=== PATIENT | female | born 1940 | race Caucasian/White ===

== ENCOUNTER 2025-01-25 15:27 | Emergency (ER) | payer MEDICARE, MEDICAID, SELFPAY ==
--- NOTE | ~2025-01-25 | CT_ITS ---
CLINICAL HISTORY: fall, head injury CT cervical spine without contrast Comparison: None Findings: Normal limited view of the intracranial contents. Soft tissues of the neck are normal. Lung apices are clear. There is bilateral pleural apical calcified plaque. No acute fractures. There is advanced degenerative narrowing of the temporomandibular joints. There is ankylosis/fusion of C5-6 and C6-7 disc spaces. No epidural hematoma. There is uncovertebral joint and facet hypertrophy with advanced bilateral foraminal stenosis at C4-5, There is 6 mm anterolisthesis of C4 on C5. Impression: There is 6 mm anterior subluxation C4 on C5. There is advanced foraminal stenosis at this level in the left and moderate foraminal stenosis on the right. No soft tissue hematoma. No signs of associated fracture. This document has been electronically signed by: Claudio Faustin MD on 01/25/2025 17:26:52
--- NOTE | ~2025-01-25 | XR_ITS ---
CLINICAL HISTORY: fall, weakness EXAM: Two views of the chest. COMPARISON: None FINDINGS: Normal cardiac, mediastinal, and hilar contours. Normal heart size. No pleural effusion or pneumothorax. Lungs are clear. No acute bone finding. IMPRESSION: 1. No acute cardiopulmonary process demonstrated. This document has been electronically signed by: Johnny Lombardi MD on 01/25/2025 18:58:58
--- NOTE | ~2025-01-25 | XR_ITS ---
CLINICAL HISTORY: fall, bilateral pain 5 view, pelvis and bilateral hips Comparison: None Findings: No acute fracture or dislocation. Moderate bilateral hip osteoarthritic changes, xshy-mwywgtk-glif-right. The soft tissues are unremarkable. IMPRESSION: No acute findings. This document has been electronically signed by: Johnny Lombardi MD on 01/25/2025 18:58:45
--- NOTE | ~2025-01-25 | CT_ITS ---
CLINICAL HISTORY: fall, head injury CT Head Without Contrast: Comparison: None Findings: Cortical sulci are symmetric Basal ganglia are unremarkable No shift in midline structures No intraparenchymal bleeding or abnormal extra axial blood fluid collections Normal pituitary size Clear paranasal sinuses Unremarkable orbital structures No depressed fractures Impression: Unremarkable CT of the head, no signs of acute trauma This document has been electronically signed by: Claudio Faustin MD on 01/25/2025 17:14:08
[2025-01-25 15:35] VITALS: BP 162/76; BP 168/62; PULSE 100; PULSE 93; RESP 18; TEMP 36.7; O2SAT 97; O2SAT 98; BMI 19.4
--- NOTE | 2025-01-25 15:43 | ECG_ITS ---
Test Reason : syncope Blood Pressure : */* mmHG Vent. Rate : 89 BPM Atrial Rate : 89 BPM P-R Int : 170 ms QRS Dur : 84 ms QT Int : 390 ms P-R-T Axes : 45 -27 73 degrees QTcB Int : 474 ms Sinus rhythm with marked sinus arrhythmia Nonspecific ST and T wave abnormality Abnormal ECG No previous ECGs available Referred By: Generic ED Physician Electronically Signed By: Sukhdeep Clemente
--- NOTE | 2025-01-25 15:47 | ED_ITS ---
HPI - Fall General Chief Complaint: Fall Stated Complaint: fall injury Time Seen by Provider: 01/25/25 15:44 Source: patient and EMS Mode of arrival: EMS Limitations: no limitations History of Present Illness ED Provider: olga tanner NP HPI Narrative: Patient is an 84-year-old female who presents emergency department via EMS coming from [facility] facility at [facility]. She states that she is feeling generally weak and fatigued today, she admits that over the past 2 days she was out attending services, and has been under a great deal stress rounding this. She decided to go and get herself of TMs she thought that this might help her feel better, she felt increasingly more weak while thinks she ultimately fell backwards onto the floor striking her head. She denies any loss of consciousness, use of anticoagulants. She was able to get herself up from the floor and walk back in her room to call her friends for help. She does admit to having pain in the bilateral hips though she has chronic arthritis, states that she has not noticed an acute change she was able to walk after the fall. She denies headache, dizziness, lightheadedness, vision changes, chest pain, shortness of breath, nausea, vomiting, numbness or tingling of the extremity. Denies recent URI symptoms, fevers, chills, cough, abdominal pain, diarrhea, constipation. Related Data Allergies Allergy/AdvReac Type Severity Reaction Status Date / Time methotrexate [METHOTREXATE] Allergy Severe DIFFICULTY Verified 01/25/25 15:41 BREATHING Review of Systems 2 Review of Systems: Yes all other systems are reviewed and are negative [facility] Past Medical History Attestation statement: The following information was validated with the patient. Source: old records reviewed Social History Social History Advance Directives: No Advance Directives Information Provided: No Physical Exam 2 Vital Signs: Vital Signs: Last Vital Signs Temp 98.2 F 01/26/25 06:02 Pulse 79 01/26/25 06:02 Resp 16 01/26/25 06:02 BP 148/67 H 01/26/25 06:02 Pulse Ox 95 01/26/25 06:02 O2 Del Method Room Air 01/26/25 06:02 BMI result Body Mass Index 19.4 Appearance: Alert.?Oriented to person, place and time. No acute distress.?Normal affect. Head: Normocephalic, atraumatic Eyes: Pupils equal, round and reactive to light.? EOMI. No palpable periorbital deformities or ecchymosis ENT: Pharynx normal.??TM normal bilaterally. No rhinorrhea. No septal hematoma. TM normal bilaterally Neck: Normal inspection.? Neck supple.??No midline cervical spine tenderness, step-offs, deformities. Back: No midline thoracic or lumbar spine tenderness, step-offs, deformities. CVS: Heart sounds normal. Normal heart rate and rhythm.? Pulses normal.?? Respiratory: No respiratory distress.? Lung sounds clear to auscultation bilaterally?? Abdomen: Soft and non-tender. Normoactive bowel sounds Skin: Skin warm and dry.? Normal skin color.? Extremities: No lower extremity edema.? No calf ttp. Full range of motion to bilateral upper extremities, decreased AROM to the bilateral hips due to pain 2+ DP/PT pulse, 2+ radial pulse bilaterally. Neuro: Moves all extremities spontaneously. Sensation intact bilaterally. CN II- XII intact. No focal neuro deficits. Course Reevaluation(s) Reevaluation #1: CBC reveals a mild leukocytosis 11,300, normocytic anemia that does not meet transfusion criteria, thrombocytosis 533,000. Hyponatremia, hypokalemia, hypochloremia, does not appear as though she is on any diuretics, will obtain additional labs including urine sodium, urine, and serum osmolality. Reevaluation #2: CT of the cervical spine has resulted with findings of a 6 mm anterior subluxation of C4 on C5. Patient is without any reports of acute pain to the cervical spine nor tenderness upon palpation. There is advanced formula stenosis as well. Given her underlying arthritis, I am not certain whether this is something chronic in nature versus acute from the fall today. I have contacted [facility], was unable to reach the trauma service through their transfer line, I was however connected to the emergency department and I spoke with Dr. Lopez, he was able to access their medical records and determined that in [address] of the cervical spine which at that time revealed a 5 mm subluxation of C4 on C5. This clearly favoring a chronic finding rather than acute and given she is currently asymptomatic without focal neurological deficits, did not feel as though she required transfer. Time: 18:21 Reevaluation #3: XR of the bilateral hips and pelvis without acute pathology no fracture dislocation, CXR without consolidation or infiltrates no acute pathology. Reviewed serum labs and urine Osmo/sodium with Nephrology Dr. Blanc to dehydration, advises electrolyte replacement and IV fluids. Patient receiving 1 L normal saline IV fluid, magnesium potassium were replaced, pending repeat chemistries. Patient signed out to [facility] pending labs. I had a discussion with patient and her visitors at bedside, patient was able to ambulate with use of a walker, they did expressed concern about her safety and strength with returning to an independent living facility, given option for physical therapy/case management evaluation. Time: 01:26 Additional Reevaluation(s): Patient received in sign-out at change of shift pending repeat labs and disposition. The patient's repeat chemistries are improved, sodium is closed with a normal at 133, potassium is within normal limits, chloride has improved within normal limits. No other concerning findings. On re-evaluation, despite the patient walking to the bathroom several times, she reported that she did not feel safe being discharged and would prefer to stay overnight for physical therapy evaluation and case management evaluation. Consultations Consultation #1: Time: 08:35 Date: 01/26/25 Provider: OSKAR Cross I have reviewed all lab/ imaging results. hyponatremia/hypochloremia/hypomagnesemia/hypokalemia > repleted + IVF w/ improvement. no acute fractures on imaging. I was called to bedside by patient and her niece Maude. Patient expresses desire to be discharged home at this time. She does not wish to wait for PT evaluation. Patient states that her hip pain is much improved since last night and she is able to move around more. She has been up and ambulating independently to the bathroom several times. I have also evaluated patient, she appears to have steady gait. Both her and her niece are comfortable with her discharge back to her independent living facility. Physician observation ended at 8:35 a.m. Patient has plans to follow up outpatient with her doctor tomorrow. patient is AOX3 and capable of making her own decisions. I feel discharge back to her living facility is reasonable at this time. PT eval canceled. Patient has remained stable throughout ED visit today. Discussed worrisome signs and symptoms and when to return to the ED. All questions answered at this time. Patient is agreeable with disposition and stable for discharge. Medications Administered Discontinued Medications Generic Name Dose Route Start Last Admin Trade Name Monica PRN Reason Stop Dose Admin Acetaminophen 975 mg 01/25/25 19:02 01/25/25 19:11 Acetaminophen 325 Mg Tablet PO 01/25/25 19:03 975 mg ONCE ONE Administration Sodium Chloride 1,000 mls @ 999 mls/hr 01/25/25 20:15 01/25/25 21:44 Ns IV 01/25/25 21:15 Infused .Q1H1M JOSEFINA Infusion Magnesium Oxide 400 mg 01/25/25 16:55 01/25/25 17:29 Magnesium Oxide 400 Mg Tablet PO 01/25/25 16:56 400 mg ONCE ONE Administration Potassium Chloride 40 meq 01/25/25 16:55 01/25/25 17:29 Potassium Chloride Packet 20 Meq Packet PO 01/25/25 16:56 40 meq ONCE ONE Administration Medical Decision Making Medical Decision Making [facility] Narrative: Patient is an 84-year-old female with past medical history of hypertension, IBS, arthritis, hypothyroidism, GERD who presents emergency department for evaluation after an unwitnessed fall, feeling generally weak today, increasing weakness upon walking, result and fall posteriorly with head strike no loss of consciousness no use of anticoagulants. She was able to get up unassisted back to her room to call for help. Her only physical complaints at this time is generalized weakness in addition to pain to the bilateral hips which he states is chronic in nature for her does not feel as though it is increased. On examination there is no shortening or rotation of the lower extremities he does have decreased AROM. 2+ DP/PT pulse bilaterally. She has no focal neurological deficits. Given her age and history of fall, obtaining CT head and cervical spine to exclude ICH, SDH, fracture, subluxation. In addition will obtain XR of the bilateral hips/pelvis to evaluate for possible fracture/dislocation. Her generalized weakness/fatigue may be secondary to over exertion over the past 2 days, will obtain CBC to evaluate for leukocytosis/ anemia, CMP and lipase to evaluate for abnormal electrolytes /abnormal renal function/ abnormal hepatic/biliary function, EKG and troponin to evaluate for ischemia/ACS, viral serologies, and Urinalysis. Differential Diagnosis Differential Diagnoses: The differential diagnosis associated with the presentation includes (See narrative above) Admission/Observation Consideration of admission/observation: Escalation of care including admission/observation considered Lab Data [facility] Lab Attestation statement: I reviewed the patient's lab results. 01/25/25 16:02 01/25/25 21:43 Labs: Lab Results 01/25/25 01/25/25 01/25/25 Range/Units 16:02 17:48 17:51 WBC 11.3 H (4.8-10.8) X10*3/uL RBC 3.30 L (4.20-5.50) X10*6/uL Hgb 10.0 L (12.0-16.0) g/dl Hct 28.6 L (37.0-47.0) % MCV 86.7 (80.0-98.0) fL MCH 30.3 (27.0-33.0) pg MCHC 35.0 (31.0-35.0) g/dl RDW 13.6 (11.0-16.0) % Plt Count 533 H (160-400) X10*3/uL MPV 8.0 L (9.4-12.3) fL Immature Gran % (Auto) 0.5 H (0.0-0.4) % Neut % (Auto) 91.1 H (45-73) % Lymph % (Auto) 1.4 L (20-40) % Summers % (Auto) 6.6 (2-11) % Eos % (Auto) 0.0 (0-4) % Baso % (Auto) 0.4 (0-2) % Lymph # (Auto) 0.2 L (1.2-4.9) X10*3/uL Summers # (Auto) 0.8 (0.1-1.2) X10*3/uL Eos # (Auto) 0.0 (0.0-0.4) X10*3/uL Baso # (Auto) 0.1 (0.0-0.2) X10*3/uL Abs Immat Gran (auto) 0.06 H (0.00-0.03) X10*3/uL Absolute Neuts (auto) 10.3 H (2.0-8.3) x10*3/uL Absolute Nucleated RBC 0.000 (0.0-0.012) X10*3/uL Nucleated RBC % (auto) 0.0 (0.0-0.2) /100WBC Smear Tech's Comments VERIFIED Sodium 129 L (135-145) mmol/L Potassium 3.1 L (3.3-5.1) mmol/L Chloride 94 L (96-108) mmol/L Carbon Dioxide 24 (22-29) mmol/L Anion Gap 14 (12-20) BUN 12 (9-16) mg/dL Creatinine 0.80 (0.5-1.4) mg/dL Estim Creat Clear Calc 40.8 Estimated GFR > 60 Random Glucose 180 H (60-115) mg/dL Osmolality 270 L (281-305) mosm/kg Calcium 9.2 (8.4-10.2) mg/dL Magnesium 1.5 L (1.6-2.6) mg/dL Total Bilirubin 0.5 (0.0-1.0) mg/dL AST 28 (5-31) U/L ALT 11 (0-31) U/L Alkaline Phosphatase 81 (39-117) U/L Troponin I High Sens 14.4 (<3.5-17.0) ng/L B-Natriuretic Peptide 121 H (<100) pg/mL Total Protein 7.4 (6.5-8.0) g/dL Albumin 4.1 (3.5-5.0) g/dL Urine Color Yellow Urine Appearance Clear Urine pH 6.5 (5.0-9.0) Ur Specific [place] 1.010 (1.005-1.025) Urine Protein Negative (Neg-Trace) mg/dL Urine Glucose (UA) 100 H (Negative) mg/dL Urine Ketones Negative (Negative) mg/dL Urine Blood Trace H (Negative) Urine Nitrite Negative (Negative) Ur Leukocyte Esterase Negative (Negative) Urine RBC 0-2 (0-2) /HPF Urine WBC 0-5 (0-5) /HPF Ur Squamous Epith Cells 0-2 (0-2) /HPF Urine Bacteria None Seen (None Seen) Hyaline Casts 0-2 (0-2) /LPF Urine Osmolality 255 L (373-1093) mosm/kg Ur Random Sodium 69.0 mmol/L Influenza Type A (PCR) NEGATIVE (Negative) Influenza Type B (PCR) NEGATIVE (Negative) RSV RNA Qual (PCR) NEGATIVE (Negative) SARS-CoV-2 RNA (RT-PCR) NEGATIVE (Negative) 04/12/25 Range/Units 21:43 WBC (4.8-10.8) X10*3/uL RBC (4.20-5.50) X10*6/uL Hgb (12.0-16.0) g/dl Hct (37.0-47.0) % MCV (80.0-98.0) fL MCH (27.0-33.0) pg MCHC (31.0-35.0) g/dl RDW (11.0-16.0) % Plt Count (160-400) X10*3/uL MPV (9.4-12.3) fL Immature Gran % (Auto) (0.0-0.4) % Neut % (Auto) (45-73) % Lymph % (Auto) (20-40) % Summers % (Auto) (2-11) % Eos % (Auto) (0-4) % Baso % (Auto) (0-2) % Lymph # (Auto) (1.2-4.9) X10*3/uL Summers # (Auto) (0.1-1.2) X10*3/uL Eos # (Auto) (0.0-0.4) X10*3/uL Baso # (Auto) (0.0-0.2) X10*3/uL Abs Immat Gran (auto) (0.00-0.03) X10*3/uL Absolute Neuts (auto) (2.0-8.3) x10*3/uL Absolute Nucleated RBC (0.0-0.012) X10*3/uL Nucleated RBC % (auto) (0.0-0.2) /100WBC Smear Tech's Comments Sodium 133 L (135-145) mmol/L Potassium 3.8 D (3.3-5.1) mmol/L Chloride 102 (96-108) mmol/L Carbon Dioxide 24 (22-29) mmol/L Anion Gap 11 L (12-20) BUN 10 (9-16) mg/dL Creatinine 0.73 (0.5-1.4) mg/dL Estim Creat Clear Calc 44.7 Estimated GFR > 60 Random Glucose 159 H (60-115) mg/dL Osmolality (281-305) mosm/kg Calcium 8.1 L D (8.4-10.2) mg/dL Magnesium 1.5 L (1.6-2.6) mg/dL Total Bilirubin (0.0-1.0) mg/dL AST (5-31) U/L ALT (0-31) U/L Alkaline Phosphatase (39-117) U/L Troponin I High Sens (<3.5-17.0) ng/L B-Natriuretic Peptide (<100) pg/mL Total Protein (6.5-8.0) g/dL Albumin (3.5-5.0) g/dL Urine Color Urine Appearance Urine pH (5.0-9.0) Ur Specific [place] (1.005-1.025) Urine Protein (Neg-Trace) mg/dL Urine Glucose (UA) (Negative) mg/dL Urine Ketones (Negative) mg/dL Urine Blood (Negative) Urine Nitrite (Negative) Ur Leukocyte Esterase (Negative) Urine RBC (0-2) /HPF Urine WBC (0-5) /HPF Ur Squamous Epith Cells (0-2) /HPF Urine Bacteria (None Seen) Hyaline Casts (0-2) /LPF Urine Osmolality (373-1093) mosm/kg Ur Random Sodium mmol/L Influenza Type A (PCR) (Negative) Influenza Type B (PCR) (Negative) RSV RNA Qual (PCR) (Negative) SARS-CoV-2 RNA (RT-PCR) (Negative) Radiology Impression Discussion of test interpretation with radiology: I have reviewed the radiologist's reading. Radiologist Impression: CT Head Without Contrast: Comparison: None Findings: Cortical sulci are symmetric Basal ganglia are unremarkable No shift in midline structures No intraparenchymal bleeding or abnormal extra axial blood fluid collections Normal pituitary size Clear paranasal sinuses Unremarkable orbital structures No depressed fractures Impression: Unremarkable CT of the head, no signs of acute trauma CT cervical spine without contrast Comparison: None Findings: Normal limited view of the intracranial contents. Soft tissues of the neck are normal. Lung apices are clear. There is bilateral pleural apical calcified plaque. No acute fractures. There is advanced degenerative narrowing of the temporomandibular joints. There is ankylosis/fusion of C5-6 and C6-7 disc spaces. No epidural hematoma. There is uncovertebral joint and facet hypertrophy with advanced bilateral foraminal stenosis at C4-5, There is 6 mm anterolisthesis of C4 on C5. Impression: There is 6 mm anterior subluxation C4 on C5. There is advanced foraminal stenosis at this level in the left and moderate foraminal stenosis on the right. No soft tissue hematoma. No signs of associated fracture. EXAM: Two views of the chest. COMPARISON: None FINDINGS: Normal cardiac, mediastinal, and hilar contours. Normal heart size. No pleural effusion or pneumothorax. Lungs are clear. No acute bone finding. IMPRESSION: 1. No acute cardiopulmonary process demonstrated. 5 view, pelvis and bilateral hips Comparison: None Findings: No acute fracture or dislocation. Moderate bilateral hip osteoarthritic changes, [id number]. The soft tissues are unremarkable. IMPRESSION: No acute findings. Independent Historian Clinical information obtained from an independent historian. History obtained from or confirmed by: EMS Chronic Conditions Patient?s care impacted by: Other (See narrative above) Discharge Plan Discharge Clinical Impression: Fall, Hyponatremia, Hypomagnesemia, Hypokalemia Patient Disposition: Home, Self-Care Instructions: Hyponatremia (ED), Hypomagnesemia (ED), Fall Prevention (ED), Hypokalemia (ED) Additional Instructions: You were evaluated in the ED following a fall. The CT scans of your head and your neck do not demonstrate any acute trauma or fracture. 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 This is evident on previous scans. The x-rays of your chest and hip/pelvis are normal. Your blood work did show low levels of sodium, magnesium, and potassium. see home care instructions. You were treated with IV fluids, IV magnesium and IV potassium. Make sure you are staying well hydrated and drinking electrolytes. It was important that you follow up with your PCP this week. They may want to repeat labs to ensure that your levels stay within normal limits. You are declining physical therapy evaluation at this time. You are walking with a steady gait and feel safe with discharge back to your independent living facility. Please follow up with your PCP. Return with any new or worsening symptoms. In the case of an emergency call 911. Print Language: Syriac
[2025-01-25 16:09] LABS: Basophils Absolute Auto 0.1 X10*3/uL (0.0-0.2); Basophils Percent Auto 0.4 % (0-2); Hematocrit 28.6 % (37.0-47.0); Imm Gran Abs Auto 0.06 X10*3/uL (0.00-0.03); Imm Gran Pct Auto 0.5 % (0.0-0.4); Lymphocytes Absolute Auto 0.2 X10*3/uL (1.2-4.9); Lymphocytes Percent Auto 1.4 % (20-40); MANUAL DIFF FLAG SCAN; Mean Corpuscular Hemoglobin 30.3 pg (27.0-33.0); Mean Corpuscular Volume 86.7 fL (80.0-98.0); Monocytes Absolute Auto 0.8 X10*3/uL (0.1-1.2); Monocytes Percent Auto 6.6 % (2-11); Neutrophils Absolute Auto 10.3 x10*3/uL (2.0-8.3); Neutrophils Percent Auto 91.1 % (45-73); Platelet Count 533 X10*3/uL (160-400); Red Cell Distribution Width 13.6 % (11.0-16.0); SCAN SMEAR FLAG 1; White Blood Count 11.3 X10*3/uL (4.8-10.8)
[2025-01-25 16:32] LABS: SLIDE REVIEW VERIFIED
[2025-01-25 16:37] LABS: Alanine Aminotransferase 11 U/L (0-31); Albumin Level 4.1 g/dL (3.5-5.0); Alkaline Phosphatase 81 U/L (39-117); Anion Gap 14 (12-20); Aspartate Amino Transferase 28 U/L (5-31); Bilirubin Total 0.5 mg/dL (0.0-1.0); Blood Urea Nitrogen 12 mg/dL (9-16); Calcium 9.2 mg/dL (8.4-10.2); Carbon Dioxide 24 mmol/L (22-29); Chloride 94 mmol/L (96-108); Creatinine Clr Calc Pharmacy 40.8; Estimated Glomerular Filt Rate > 60; Glucose Random 180 mg/dL (60-115); Magnesium 1.5 mg/dL (1.6-2.6); Potassium 3.1 mmol/L (3.3-5.1); Sodium 129 mmol/L (135-145); Total Protein 7.4 g/dL (6.5-8.0)
[2025-01-25 16:41] LABS: Troponin-I High Sensitivity 14.4 ng/L (<3.5-17.0)
[2025-01-25 16:43] LABS: B Type Natriuretic Peptide 121 pg/mL (<100)
--- OUTSIDE RECORDS SUMMARY | 2025-01-25 16:57 | XMS_ITS ---
Author Organization [facility] Address [address] [place] [address] Care Team Providers Care Inspection Clerk Name Role Phone Neo Paige MD Primary Care Provider Kristel Craven [phone] Allergies Allergen (clinical drug ingredient) Drug/Non Drug Allergy documented on EMR Reaction Allergy Type Onset Date Status Methotrexate Unknown Drug Allergy Acti ve Encounters Encounter Location Date Provider Diagnosis [address] [address] 11/26/2024 Kristel Washburn Plan Of Treatment Next Appt Details Provider Name:Kristel douglas, 02/28/2025 10:15:00 AM, [address] [place] [address], [id number], Progress Notes * Laurence MOHANDOB:1940 ( 84 yo F)Acc No.[id number]:11/26/2024 Progress Note Patient:?Laurence MOHAN Provider:?Kristel Washburn DPM :1940???Age:84 Y???Sex:Female D ate:11/26/2024 Address:[address] [place] [address] [address], [facility] Pcp:Neo Paige MD Subjective: * Chief Complaints: * ??? * Medical History:?Arthritis, Chicken pox, High blood pressure, Measles, Mumps. * Allergies:?Methotrexate. Objective: * Vitals:? Assessment: Plan: * Treatment: * Images: * The named appointment provid er may or may not be the originator of this progress note, and it is not deemed complete until electronically signed by the appointment provider. Sign off status: Pending * Provider:?Kristel Washburn DPM Date:?0 11/26/2024 Generated for Jm castillo/Gabriela/Daniel on:?01/25/2025 04:57 PM EDT
--- OUTSIDE RECORDS SUMMARY | 2025-01-25 16:57 | XMS_ITS | Continuity of Care Document ---
Author Organization [facility] Address [address] [place] [address] Phone Care Team Providers Care Manager Business Systems Name Role Phone Trevor RINCON FACS RVT [...] E&M Established 15 Mins Dennis [facility], [address] [place] [address] Dr Lozano [address], [id number], [place] tel:[phone] CVR - [place] Venous insufficiency (chronic) (peripheral) 3 Trevor RINCON FACS T WENDY Shi. [address], [address], [place], [address], [place]. tel:[phone] Referring Provider: Kevin Rosenbaum DPM, [facility] [address], [facility] [place], [address]. tel:[phone] [facility], [address] [place] [address] Dr Lozano [facility] [address], [id number], [place] tel:[phone] CVR - [place] - [place] Encntr for f/u exam aft trtmt for cond oth than malig neoplmVenous insufficiency (chronic) (peripheral) 3 Trevor RINCON FACS T WENDY Shi. [address], [address], [place], [address], [place]. tel:[phone] Referring Provider: Kevin Rosenbaum DPM, [facility] [address], [place], [address]. tel:[phone] Dennis [facility], [address] [place] [address] Dr Lozano [address], [id number], [place] tel:[phone] CVR - [place] Venous insufficiency (chronic) (peripheral) 3 Trevor RINCON FACS Roe Shi[address], [address], [facility] [place], [address], [place]. tel:[phone] Referring Provider: Kevin Rosenbaum DPM, [facility] [address], [facility] [place], [address]. tel:[phone] [facility], [address] [place] [address] Dr Lozano [address], [place], [id number], [place] tel:[phone] CVR - [place] Venous insufficiency (chronic) (peripheral) 3 Trevor Shi. [address] [facility], [address] [address], [place], [address], [place]. tel:[phone] Referring Provider: Kevin Rosenbaum DPM, [facility] [address], [facility] [place], [address]. tel:[phone] Offic/outpt E&m Estab 5 Min Trial [facility], [address] [place] [address] Dr Lozano [address], [id number], [place] tel:[phone] CVR - [place] Venous insufficiency (chronic) (peripheral) 3 Trevor Shi[address] [place] [address], [place], [address], [place]. tel:[phone] Referring Provider: Kevin Rosenbaum DPM, [facility] [address], [facility] [place], [address]. tel:[phone] Dennis Broussard [facility], [address] [place] [address] Dr Lozano [address], [place], [id number], [place] tel:[phone] CVR - [place] No Information 3 Trevor Shi. [facility] [address], [place], [address], [place]. tel:[phone] Referring Provider: Kevin Rosenbaum DPM, [facility] [address], [facility] [place], [address]. tel:[phone] Office/Outpt E&M Established 15 Mins [facility], [address] [place] [address] Dr Lozano [address], [id number], [place] tel:[phone] CVR - [place] Venous insufficiency (chronic) (peripheral) [address] [place] [address], [place] [address], [facility] [place], [address], [place]. tel:[phone] Referring Provider: Kevin Rosenbaum DPM, [address] [place] [address], [place], [address]. tel:[phone] [facility], [address] [place] [address] [address] [address], [place], [id number], [place] tel:[phone] CVR - [place] Venous insufficiency (chronic) (peripheral) 3 Trevor RINCON FACS Roe Shi. [facility], [address] [address] [address], [facility] [place], [address], [place]. tel:[phone] Referring Provider: Kevin Rosenbaum DPM, [address] [place] [address], [place], [address]. tel:[phone] Office/Oupt E&M New Pt 30 Mins [facility], [address] [place] [address] [address], [place], [id number], [place] tel:[phone] CVR - [place] Venous insufficiency (chronic) (peripheral)Lo calized edema 3 Trevor RINCON FACS Roe Shi. [address] [place] [address], [place] [address], [place], [address], [place]. tel:[phone] Referring Provider: Kevin Rosenbaum DPM, [address] [place] [address], [place], [address]. tel:[phone] Family History Family Member Type Diagnosis Age At Onset No Information Payers Payer name Insurance type Covered alliance party ID Authoriza tion(s) Medicare DEJUAN ZAPATA [id number] Medical Assistance [place] [id number] Social History Type Description Quantity Date Captured [...]
--- OUTSIDE RECORDS SUMMARY | 2025-01-25 16:57 | XMS_ITS ---
Author Organization [facility] Address [address] [facility] [place] [address] Care Team Providers Care Thread Clipper Name Role Phone Neo Paige MD Primary Care Provider Kristel Craven Unavailable [phone] Allergies Allergen (clinical drug ingredient) Drug/Non Drug Allergy documented on EMR Reaction Allergy Type Onset Date Status Methotrexate Unknown Drug Allergy Acti ve REASON FOR VISIT Warts Medications Medication SIG (Take, Route, Frequency, Duration) Notes Start Date End Date Status Aspirin 81 MG 1 tablet Orally Once a day for 30 day(s) Active Hydroxychloroquine Sulfate 200 MG as directed Orally Active Levothyroxine Sodium 50 MCG 1 tablet on an empty stomach in the morning Orally Once a day for 30 day(s) Active Linzess Active Matzim LA Active dilTIAZem HCl ER 240 MG 1 capsule on an empty stomach in the morning Orally Once a day for 30 day(s) Not-Taking Nitrofurantoin Macrocrystal 50 MG 1 capsule with food or milk Orally Once a day for 30 day(s) Active Potassium Active Xeljanz 5 MG 1 tablet Orally Twice a day for 30 day(s) Active Social History Tobacco Use: Social History Observation Description Date Details (start date - stop date) Never Smoker NA - NA Tobacco Use/Smoking Question Answer Notes Are you a: nonsmoker Additional Findings: Tobacco Non-User Current no n-smoker Alcohol Screen Question Answer Notes Did you have a drink containing alcohol in the p ast year? No Points 0 Interpretation Negative Tobacco use other than smoking: Question Answer Notes Are you an other tobacco user? No Vital Signs Height 5 ft 2 in in 08/27/2024 Weight 108 lbs 08/27/2024 BMI 19.75 kg/m2 08/27/2024 Procedures Procedure Date Ordered Date Performed Result Body Sit e 64271-Whoo Destruction, 1-14 08/27/2024 N/A Encounters Encounter Location Date Provider Diagnosis [facility] [address] [address] 08/27/2024 Kristel Maddison Plantar wart, right foot B07.0 Assessments Encounter Date Diagnosis (ICD Code) Assessment Notes Treatment Notes Treatment Clinical Notes Section Notes 08/27/2024 Plantar wart, right foot (ICD-10 - B07.0) Plan Of Treatment Pending Test Test Name Order Date 66096-Fotv Destruction, -08/27/2024 Next Appt Details Follow Up: 2 Months, Reason: Provider Name:Kristel Dianasherif stella, 02/28/2025 10:15:00 AM, [address] [facility], [place] [address], [place], [address], Procedure Notes * Category Sub-Category Detail Notes Wart Treatment Procedure Verruca were leah rided to pin-point bleeding margins with sterile 15 surgical blade, silver nitrate chemocautery applied, recomm. immune-boosting meds such as zinc, recomm. follow up with topical chemosurgical agents, Pt defers any other forms of tx - 10845 Progress Notes * Laurence MOHANDOB:1940 ( 83 yo F)Acc No.[id number]:08/27/2024 Progress Note Patient:?Laurence MOHAN Provider:?Kristel Washburn DPM :1940???Age:83 Y???Sex:Female D ate:08/27/2024 Address:[address] [place], [place] [id number] Pcp:Neo Paige MD Subjective: * Chief Complaints: * ???Warts * HPI: ???Wart:?Pt States Last PCP Visit:?Date:?06/23/2024 * ROS:?General/Constitutional:?Nausea?denies.?Vomiting?denies.?Hunger Thirst?denies.?Loss appetite?denies.?Chills?denies.?Fatigue?denies.?Fever?denies.?Night Sweats?denies.?Unexplained weight loss?denies.?Unexplained weight gain?denies.?HEENTM:?Dentures?denies.?Dizziness?denies.?Glasses/contacts?denies.?Retinopathy?de nies.?Blurred/double vision?denies.?TMJ?denies.?Discharge/drainage?denies.?Implants?denies.?Sore throat?denies.?Dental implants?denies.?Hard of hearing ?denies.?Difficulty chewing/swallowing/speaking?denies.?Nose bleeds?denies.?Sore mouth?denies.?Respiratory:?On Oxygen?denies.?Pneumonia/pleurisy?denies.?Bronchitis?denies.?Emphysema?denies.?C oughing?denies.?Cough blood?denies.?Shortness of breath?denies.?Wheezing?denies.?Cardiovascular:?Pacemaker?denies.?MVP?denies.?WPW?denies.?CHF?denies.?Heart attack?denies.?Septal defect?denies.?Rapid beat?denies.?Chest pain ?denies.?Atrial Fib.?denies.?Murmur/Palpitations?denies.?Gastrointestinal:?Hemorrhoids?denies.?Stomach/Abdominal pain?denies.?Dark blood stool?denies.?Irritable bowel ?denies.?Constipation?denies.?Diarrhea?denies.?Hematology:?Swelling?admits.?Clots?denies.?Varicose Veins?denies.?Bruising?denies.?Bleeding problem?denies.?Genitourinary:?Blood urine?denies.?Frequent/Painfu/urination/bladder control?admits.?Kidney stones?denies.?Infection (UTI)?denies.?Nephropathy?denies.?sex trans dis (STD)?denies.?Prostate?denies.?Musculoskeletal:?Hammertoes?denies.?Bunions?denies.?Back Pain?denies.?Muscle Cramps/ Resting?denies.?Muscle cramps / walking?denies.?Generalized aches and pains?denies.?Weakness?denies.?Integ.:?Capone?denies.?Scars?denies.?Corns/calluses?admits.?Ingrown nails?denies.?Painful nails?denies.?Open Sores?denies.?Rashes?denies.?Neurologic:?Difficulty sleeping?denies.?Brain disorder?denies.?Numbness?denies.?Balance trouble?denies.?Confusion?denies.?Fainting/blackouts?denies.?Tingling?denies.?Tr emors?denies.? * Medical History:? * Surgical History:?bladder trujillo [address] surgery 1999? * Hospitalization/Major Diagno stic Procedure:?No Hospitalization History. * Family History:?Mother: dece ased, diagnosed with Other malignant neoplasm of unspecified site, Unspecified essential hypertension.?Father: , diagnosed with Unspecified essential hypertension, Unspecified heart disease.? * Social History:?Tobacco Use:?Tobacco Use/Smoking?Are you a:?nonsmoker ?Additional Findings: Tobacco Non-User?Current non-smoker ?Tobacco use other than smoking?Are you an other tobacco user??No ???Drugs/Alcohol:?Drugs?Have you used drugs other than those for medical reasons in the past 12 months??No ?Alcohol Screen?Did you have a drink containing alcohol in the past year??No ?Points?0 ?Interpretation?Negative ???Miscellaneous:?Caffeine: yes, frequency:, 2-3 cups per day. ?Children: no. ?Exercise: Walking. ?Marital status: single. ?Occupation: Retired from [employer]. * Medications:?TakingAspirin 8 1 MG Tablet Delayed Release 1 tablet Orally Once a day Hydroxychloroquine Sulfate 200 MG Tablet as directed Orally Levothyroxine Sodium 50 MCG Tablet 1 tablet on an empty stomach in the morning Orally Once a day Linzess Matzim LA Nitrofurantoin Macrocrystal 50 MG Capsule 1 capsule with food or milk Orally Once a day Potassium Xeljanz 5 MG Tablet 1 tablet Orally Twice a day Taking Aspirin 81 MG Tablet Delayed Release 1 tablet Orally Once a day Taking Hydroxychloroquine Sulfate 200 MG Tablet as directed Orally Taking Levothyroxine Sodium 50 MCG Tablet 1 tablet on an empty stomach in the morning Orally Once a day Taking Linzess Taking Matzim LA Taking Nitrofurantoin Macrocrystal 50 MG Capsule 1 capsule with food or milk Orally Once a day Taking Potassium Taking Xeljanz 5 MG Tablet 1 tablet Orally Twice a day Not-Taking/PRNdilTIAZem HCl ER 240 MG Capsule Extended Release 24 Hour 1 capsule on an empty stomach in the morning Orally Once a day Medication List reviewed and reconciled with the patientNot-Taking/PRN dilTIAZem HCl ER 240 MG Capsule Extended Release 24 Hour 1 capsule on an empty stomach in the morning Orally Once a day Medication List reviewed and reconciled with the patient * Allergies:?Methotrexateyes[A llergies Verified] Objective: * Vitals:?Ht: 5 ft 2 in, Wt: 1 08, BMI: 19.75, Shoe size: 6.5, Wt-k.99 kg. * Examination: ???General Examination: ?GENERAL APPEARANCE:?Reveals a pleasant, alert, well nourished, well- developed, well hydrated individual, who demonstrates proper attention to hygiene/body habitus, and is in no acute distress.?ORIENTED:?person,place, and time.?Neurological: ?SENSORY:?Neurological exam reveals intact sensorium, pain sensation normal, vibration sensation intact, pinprick sensation is normal in the lower extremities, Pt denies, anesthesia, burning, paresthesia, tingling, B/L.?Vascular: ?DP PULSES(B):?2/4, B/L.?PT PULSES(B):? 1/4, B/L.?CAPILLARY FILL TIME:?3 secs. per digit, B/L.?EDEMA(C):? 3/4, Left, 2/4, Right, Feet, Ankle(s), Leg(s).?VARICOSITIES:? present, moderate, nonpainful, B/L.?Dermatologic: ?VERRUCA:? Reveals Multiple ( __2_ ), multi-loculated , mosaic-patterned, round, raised, flat-topped, petechial bleeding papule(s), with cauliflower appearance and interruption of skin lines, with pain to lateral compression, and size estimated at __2__ mm diameter, plantar Forefoot, RIGHT.?Orthopedic: ?MUSCLE STRENGTH:?5/5 all groups in a symmetrical fashion , B/L.? Assessment: * Assessment: 1.?Plantar wart, right foot - B07.0 (Primary)??? Plan: * Treatment: * Procedures:?Wart Treatment:?Procedure?Verruca were debrided to pin-point bleeding margins with sterile 15 surgical blade, silver nitrate chemocautery applied, recomm. immune-boosting meds such as zinc, recomm. follow up with topical chemosurgical agents, Pt defers any other forms of tx - 33130.? * Procedure Codes:?37473 Wart Destruction, 1-14 * Follow Up:?2 Months * Images: * Sign off status: Completed true * Provider:?Kristel Washburn DPM Date:?1 10/27/2023 Generated for Jm castillo/Gabriela/Daniel on:?01/25/2025 04:57 PM EDT History and Physical Notes * HPI (History of Present Illness) Category Sub-Category Detail Notes Category Not es Wart Pt States Last PCP Visit: Date:: 06/23/2024 Examination Category Sub-Category Detail Notes Category Not es Neurological SENSORY: Neurological exa m reveals intact sensorium, pain sensation normal, vibration sensation intact, pinprick sensation is normal in the lower extremities, Pt denies, anesthesia, burning, paresthesia, tingling, B/L Dermatologic VERRUCA: Reveals Multiple ( __2_ ), multi-loculated , mosaic-patterned, round, raised, flat-topped, petechial bleeding papule(s), with cauliflower appearance and interruption of skin lines, with pain to lateral compression, and size estimated at __2__ mm diameter, plantar Forefoot, RIGHT Orthopedic MUSCLE STRENGTH: 5/5 all groups in a symmetrical fashion , B/L General Examination GENERAL APPEARANCE: Reveals a pleasant, alert, well nourished, well-developed, well hydrated individual, who demonstrates proper attention to hygiene/body habitus, and is in no acute distress ORIENTED: person,place, and ti me Vascular DP PULSES (B): 2/4, B/L PT PULSES (B): 1/4, B/L CAPILLARY FILL TIME: 3 secs. per digit, B/L EDEMA (C): 3/4, Left, 2/4, Righ t, Feet, Ankle(s), Leg(s) VARICOSITIES: present, moderate, n onpainful, B/L"
--- OUTSIDE RECORDS SUMMARY | 2025-01-25 16:58 | XMS_ITS | Data Portability ---
Author Organization [place] - [facility], [facility] Address [address] [place] [address] Assessment Encounter Date Assessment Date Assessment LastModified by Organization Details LastModified Time 06/24/2024 06/24/2024 Annual hearing aid follow up: Otoscopic exam: Clear, AU. Audiogram: Minimal change in pure tones compared to 2020, there continues to be a decline in speech discrimination in both ears. We did go back to an audio from 2008 and looked at how much her hearing has changed in the past 15 years. (speech discrim was ~88% back then). Hearing aids cleaned: Wax guards changed: yes Domes: c-shells Listening check: Very good Warranty expires: Notes: We spend a lot of time discussing her test results and her options. I gave her the HAs aren't enough CI brochure- she is not interested in surgery at this time. We talked about Partner Pennie and Leopoldo for difficult situations and being able to pass the pennie to people and hook it up to her TV. She will take all of the information home to ponder, but for now she wants to continue to listen and use what she has to the best of her ability. I did offer an appointment to see Dr Vines, but she declined at this time. She wanted to make a quick 6 mos appt so that I can make sure her hearing aids are working properly. [email or web address] Not available 06/25/2024 11:02:42 Plan of Treatment Reminders Order Date Submit Date Provider Last Modified By Organization Details Last Modified Time Details Appointments ALDANA Fitting Follow Up (60) 2024 01:00P KAYLAN BAÑUELOS Not available Not available Not available Lab None recorded . Referral None recorded . Procedures None recorded . Surgeries None recorded . Imaging None recorded . Medication Orders None recorded . Patient TargetsNo targets recorded. Patient InstructionsNo instructions recorded. Reason for Referral None Reported. Results Created Date Observation Date Name Description Value Unit Range Abnormal Flag Note LastModifiedBy Organization Detail LastModifiedTime 06/05/20 24 05/04/2021 imagi ng/di agnos tic resul t No observ ation record ed. [email or web address] Not Available 05:24:52 06/05/20 24 09/11/2019 imagi ng/di agnos tic resul t No observ ation record ed. [email or web address] Not Available 05:25:26 06/05/20 24 10/19/2021 audio gram No observ ation record ed. [email or web address] Not Available 05:25:32 06/05/20 24 11/29/2022 audio gram No observ ation record ed. [email or web address] Not Available 05:25:33 06/05/20 24 12/18/2019 audio gram No observ ation record ed. [email or web address] Not Available 05:25:39 06/05/20 24 04/06/2020 audio gram No observ ation record ed. [email or web address] Not Available 05:25:40 06/05/20 24 04/24/2020 audio gram No observ ation record ed. [email or web address] Not Available 05:25:42 06/05/20 24 05/04/2021 audio gram No observ ation record ed. [email or web address] Not Available 05:25:45 06/05/20 24 06/26/2020 audio gram No observ ation record ed. [email or web address] Not Available 05:25:55 06/05/20 24 09/11/2019 audio gram No observ ation record ed. [email or web address] Not Available 05:26:02 06/26/20 audio gram No observ ation record ed. [email or web address] Not Available 2023 08:49:04 Result Notes None recorded. Problems Name Problem SNOMED Code Status Onset Date Resolution Date Notes Provider Name and Address Organization Details Recorded Time Sensorine ural hearing loss of bilateral ears 949987422 Active 2014 Sensorineu ral HL, bilateral; Note: Date Diagnosed: 01/22/2015 3:59 PM (389.18) ; Start Date : 01/22/2015 Sensorine ural hearing loss, bilateral; Note: Date Diagnosed: 09/14/2015 3:58 PM (H90.3) Not Available [facility] 4 03:33:40 Problem Notes None recorded. Procedures Surgical History Date Name Laterality Status Provider Name and Address Organization Details Recorded Time 4 Air only Audio (53444) completed TEA WERNER, [facility] [address] [facility],[place] [address], [place], [address], [facility] 06/25/2024 10:45:55 4 SRT & Speech Recognition (65089) completed TEA WERNER [facility] [address] [facility],[place] [address], [place], [address], [facility] 06/25/2024 10:45:59 Imaging Results Imaging Date Name Status LastModified by Organiz ation Details LastModified Time 05/04/2021 imaging/diagno stic result completed Information not available 06/05/2024 05:24:52 09/11/2019 imaging/diagno stic result completed Information not available 06/05/2024 05:25:26 10/19/2021 audiogram completed Information not available 06/05/2024 05:25:32 11/29/2022 audiogram completed Information not available 06/05/2024 05:25:33 12/18/2019 audiogram completed Information not available 06/05/2024 05:25:39 04/06/2020 audiogram completed Information not available 06/05/2024 05:25:40 04/24/2020 audiogram completed Information not available 06/05/2024 05:25:42 05/04/2021 audiogram completed Information not available 06/05/2024 05:25:45 06/26/2020 audiogram completed Information not available 06/05/2024 05:25:55 09/11/2019 audiogram completed Information not available 06/05/2024 05:26:02 06/26/2024 audiogram completed BARCODE Information no t available 06/26/2024 08:49:04 Procedure Notes None recorded. Medical Equipment None Reported. Allergies Allergen ID Allergen Name Allergen Category Reaction Reaction Severity Criticality Documentation Date Start Date Code Code System Note Provider Name and Address Organization Details Recorded Time 675287 methotrex ate medicatio n other Not available Not available 02/27/2024 6851 RxNorm React ion: other react ion, Unkno wn; Not Available [facility] 01:26:29 Medications Name Sig Start Date Stop Date Status Note LastModified by Organization Details LastModified Time nitrofuran toin macrocryst al 50 mg capsule TAKE 1 CAPSULE BY MOUTH AT BEDTIME active Not Available Not Available No t Available valacyclov ir 1 gram tablet TAKE 1 TABLET BY MOUTH 3 TIMES A DAY FOR 7 DAYS active Not Available Not Available No t Available ciprofloxa maryuri 250 mg tablet TAKE 1 TABLET BY MOUTH EVERY 12 HOURS FOR 7 DAYS active Not Available Not Available No t Available ciprofloxa maryuri 500 mg tablet TAKE 1 TABLET BY MOUTH TWICE A DAY active Not Available Not Available No t Available sulfametho xazole 800 mg-trimeth oprim 160 mg tablet TAKE 1 TABLET BY MOUTH TWICE A DAY FOR 7 DAYS active Not Available Not Available No t Available methenamin e hippurate 1 gram tablet TAKE 1 TABLET BY MOUTH TWICE A DAY active Not Available Not Available No t Available famotidine 20 mg tablet TAKE 1 TABLET BY MOUTH EVERY DAY BEFORE BREAKFAST active Not Available Not Available No t Available benzonatat e 100 mg capsule TAKE 1 CAPSULE BY MOUTH 3 TIMES A DAY NEEDED FOR COUGH active Not Available Not Available No t Available levothyrox ine 50 mcg tablet TAKE 1 TABLET BY MOUTH EVERY DAY active Not Available Not Available No t Available losartan 25 mg tablet TAKE 1 TABLET BY MOUTH EVERY DAY active Not Available Not Available No t Available Aspirin Childrens 81 mg chewable tablet 2020 active Medicatio n ID: [id number] Br and Name: Aspirin Childrens Send Method: E-Prescri bed Subs Allowed: subs OK Medica tionGener icName: Aspirin Childrens Not Available Not Available Not Available hydroxychl oroquine 200 mg tablet TAKE 1 TABLET BY MOUTH EVERY DAY active Not Available Not Available No t Available diltiazem ER 240 mg tablet,ext ended release 24 hr TAKE 1 TABLET BY MOUTH EVERY DAY active Not Available Not Available No t Available diclofenac 1 % topical gel 1 APPLICATI ON TOPICALLY 4 TIMES A DAY NEEDED FOR JOINT PAIN active Not Available Not Available No t Available Xeljanz 5 mg tablet active Not Available Not Available No t Available Linzess 145 mcg capsule TAKE 1 CAPSULE BY MOUTH EVERY DAY active Not Available Not Available No t Available Linzess 72 mcg capsule 2020 active Medicatio n ID: [id number] Br and Name: Linzess S end Method: E-Prescri bed Subs Allowed: subs OK Medica tionGener icName: Linzess Not Available Not Available Not Available Vitals None Recorded Social History None recorded. Functional Status None recorded. Mental Status None recorded. Family History Nothing Reported. Medical History No medical history recorded. Gynecological HistoryNo gynecological history recorded. Obstetrics History GPAL:G 0 P 0 0 0 0 Past Encounters Encounter ID Performer Location Encounter Start Date Encounter Closed Date Diagnosis/Indication Diagnosis SNOMED-CT Code Diagnosis ICD10 Code Diagnosis Note [id number] KAYLAN ESTRADA ALDANA - [address] [address] 06/24/2024 15:05:08 06/26/2024 08:51:16 Sensorineural hearing loss of bilateral ears [id number] H90.3 [facility]{{Norm al* Normal through 2 kHz Mild M oderate Mo derately-s evere Radha re Profoun d}} {{hearing sloping to a mild slopi ng to a moderate s loping to moderately severe slo ping to severe slo ping to profound* flat high frequency low frequency mid frequency cookie bite goodman curve}} {{with sen sorineural hearing loss with* cond uctive hearing loss with mixed hearing loss with}} {{excellen t good monik r poor no measurable fair/poor #}} word recognitio n.Left ear:{{Norm al Normal through 2 kHz Mild* Moderate M oderately- severe Sev ere Profou nd}} {{hearing sloping to a mild slopi ng to a moderate s loping to moderately severe slo ping to severe slo ping to profound* flat high frequency low frequency mid frequency cookie bite goodman curve}} {{with sen sorineural hearing loss with* cond uctive hearing loss with mixed hearing loss with}} {{excellen t good monik r poor* no measurable }} [place]itio [place]. [id number] TEA ALPHONSO, KAYLAN ALDANA - [place] [address] [facility],[address] [place] [address] 12/24/2024 12:49:34 12/25/2024 23:49:47 Sensorineural hearing loss of bilateral ears [id number] H90.3 [facility]:{{Norm al* Normal through 2 kHz Mild M oderate Mo derately-s evere Radha re Profoun d}} {{hearing sloping to a mild slopi ng to a moderate s loping to moderately severe slo ping to severe slo ping to profound* flat high frequency low frequency mid frequency cookie bite goodman curve}} {{with sen sorineural hearing loss with* cond uctive hearing loss with mixed hearing loss with}} {{excellen t good monik r poor no measurable fair/poor #}} word recognitio n.Left ear:{{Norm al Normal through 2 kHz Mild* Moderate M oderately- severe Sev ere Profou nd}} {{hearing sloping to a mild slopi ng to a moderate s loping to moderately severe slo ping to severe slo ping to profound* flat high frequency low frequency mid frequency cookie bite goodman curve}} {{with sen sorineural hearing loss with* cond uctive hearing loss with mixed hearing loss with}} {{excellen t good monik r poor* no measurable }} word recognitio n. Health Concerns Section Related Observation LastModified by Organization Detai ls LastModified Time None Recorded Concern Status LastModified by Organization Details LastModified Time None Recorded Advance Directives Directive None Recorded Payers Encounter Date Sequence Insurance Name Policy Number Policy Noriega Covered Member ID Noriega Member ID Guarantor Name 06/24/2024 1 [place] [employer] Laurence Mohan [id number] Laurnece Mohan 06/24/2024 2 [place] [facility] Laurence Mohan [id number] Laurence Mohan 12/24/2024 1 [place] [facility] Laurence Mohan [id number] Laurence Mohan 12/24/2024 2 [place] [facility] Laurence Mohan [id number] Laurence Mohan OBGyn Episode No OBEpisode recorded.
--- OUTSIDE RECORDS SUMMARY | 2025-01-25 16:58 | XMS_ITS ---
Author Organization [facility] Address [address] [place] [address] Care Team Providers Care Biomedical Instrument Technician Name Role Phone Neo Paige MD Primary Care Provider Kristel Craven Unavailable [phone] Kevin Rosenbaum [phone] REASON FOR VISIT rs from 11/26/24 Encounters Encounter Location Date Provider Diagnosis [facility] [address] [place] [address] 11/21/2024 Kevin Rosenbaum Plan Of Treatment Next Appt Details Provider Name:Kristel douglas, 02/28/2025 10:15:00 AM, [address] [facility], [place] [address], [place], [address], Progress Notes * Laurence MOHANDOB:1940 ( 84 yo F)Acc No.[id number]:11/21/2024 Patient:?Laurence MOHAN :1940???Age:84 Y???Sex:Female Address:[address] [place] [address] [address], [place], [address] * true * Date:? Generated for Printi ng/Faxing/eTransmitting on:?01/25/2025 04:57 PM EDT
[2025-01-25 16:59] LABS: Influenza A PCR NEGATIVE (Negative); Influenza B PCR NEGATIVE (Negative); Resp Syncy Virus RNA Qual PCR NEGATIVE (Negative); SARS COV2 PCR INHOUSE NEGATIVE (Negative)
[2025-01-25] MEDS: Magnesium Oxide 400 MG TABLET PO (17:29)
[2025-01-25] MEDS: Potassium Chloride Packet 20 MEQ PACKET 40 MEQ PO (17:29)
[2025-01-25 18:00] LABS: Appearance Urine Clear; Color Urine Yellow; Glucose Urine UA 100 mg/dL (Negative); Leukocyte Esterase Urine Negative (Negative); Nitrite Urine Negative (Negative); PH 6.5 (5.0-9.0); UMIC TRIGGER UACC YES; Urine Blood Trace (Negative); Urine Ketones Negative (Negative); Urine Protein Negative (Neg-Trace)
[2025-01-25 18:02] LABS: Bacteria Urine None Seen (None Seen); Hyaline Casts Urine 0-2 /LPF (0-2); RBC Urine 0-2 /HPF (0-2); Squamous Epithelial Cell Urine 0-2 /HPF (0-2); WBC Urine 0-5 /HPF (0-5)
[2025-01-25 18:21] VITALS: BP 149/64; PULSE 81; RESP 17; TEMP 36.7; O2SAT 97
[2025-01-25 18:31] LABS: Osmolality, Serum 270 mosm/kg (281-305)
[2025-01-25 18:32] LABS: Osmolality Urine 255 mosm/kg (373-1093)
--- NOTE | 2025-01-25 19:02 | PC.NURSE ---
pt reporting lower back pain requesting tylenol. per Davon STICKER ON, okay for verbal order.
[2025-01-25] MEDS: Acetaminophen 325 MG TABLET 975 MG PO (19:11)
[2025-01-25 20:29] VITALS: BP 109/50; BP 111/63; BP 118/52; PULSE 73; PULSE 77; PULSE 82
[2025-01-25] MEDS: 0.9 % Sodium Chloride 1,000 ML 999 ML IV (20:34)
--- NOTE | 2025-01-25 20:36 | PC.NURSE ---
orthos complete. #20g iv line placed in LFA. iv fluids running per dec. pt ambulated with this RN to and from bathroom, denies any dizziness/lightheadedness with position changes or ambulation, only reporting slight sob w/ exertion. pt back in bed iv fluids running, eating sandwich.
--- NOTE | 2025-01-25 21:48 | PC.NURSE ---
pt states she is feeling better, independent to bathroom with steady gait with walker. cindi brady aware, plan to reassess am.
[2025-01-25 22:07] LABS: Anion Gap 11 (12-20); Blood Urea Nitrogen 10 mg/dL (9-16); Calcium 8.1 mg/dL (8.4-10.2); Carbon Dioxide 24 mmol/L (22-29); Chloride 102 mmol/L (96-108); Creatinine Clr Calc Pharmacy 44.7; Estimated Glomerular Filt Rate > 60; Glucose Random 159 mg/dL (60-115); Magnesium 1.5 mg/dL (1.6-2.6); Potassium 3.8 mmol/L (3.3-5.1); Sodium 133 mmol/L (135-145)
[2025-01-26 06:02] VITALS: BP 148/67; PULSE 79; RESP 16; TEMP 36.8; O2SAT 95
--- NOTE | 2025-01-26 08:48 | PC.NURSE ---
Assumed care of pt at 0700, pt a/ox3, respirations even and unlabored, no increased wob/sob noted. Pt expressing she wants to be discharged- provider made aware. Pt up oob ambulating with walker independently with steady gait. Per OSKAR Stephens, vladimir to d/c home. Pt Niece able to transport pt.
[2025-01-26 09:26] VITALS: BP 148/67; PULSE 79; RESP 18; TEMP 36.8; O2SAT 95
== END 2025-01-26 09:31 | disposition home or self-care (01) ==
PROVIDERS: Nurse Practitioner Family; Emergency Provider Emergency Medicine; PCP Pediatrics
DX: S09.90XA Unspecified injury of head, initial encounter (principal); R07.89 Other chest pain; F43.9 Reaction to severe stress, unspecified; M25.552 Pain in left hip; M25.551 Pain in right hip; E87.1 Hypo-osmolality and hyponatremia; D64.9 Anemia, unspecified; R06.02 Shortness of breath; E87.6 Hypokalemia; M54.2 Cervicalgia; X58.XXXA Exposure to other specified factors, initial encounter; Y93.9 Activity, unspecified; Y92.9 Unspecified place or not applicable; Y99.8 Other external cause status; Z03.818 Encounter for observation for suspected exposure to other biological agents ruled out; Z79.899 Other long term (current) drug therapy
CPT/HCPCS: 0241U; 36415; 70450; 71046; 72125; 73521; 80048; 80053; 81001; 83735; 83880; 83930; 83935; 84300; 84484; 85025; 93005; 96360; 99284; 99285

== ENCOUNTER → 2025-01-25 15:43 | Outpatient (BNV) | payer MEDICARE, MEDICAID, SELFPAY | PROVIDERS: Emergency Provider Emergency Medicine; PCP Pediatrics; Visit Provider Internal Medicine Cardiovascular Disease | DX: I49.9 Cardiac arrhythmia, unspecified (principal) | CPT/HCPCS: 93010 ==

== ENCOUNTER → 2025-01-25 15:45 | Outpatient (BNV) | payer MEDICARE, MEDICAID, SELFPAY | PROVIDERS: Emergency Provider Emergency Medicine; PCP Pediatrics; Visit Provider Radiology Diagnostic Radiology | DX: S00.93XA Contusion of unspecified part of head, initial encounter (principal); W19.XXXA Unspecified fall, initial encounter; S13.150A Subluxation of C4/C5 cervical vertebrae, initial encounter; R07.9 Chest pain, unspecified; M25.551 Pain in right hip; M25.552 Pain in left hip | CPT/HCPCS: 70450; 71046; 72125; 73521 ==

== ENCOUNTER 2025-09-13 18:15 | Inpatient (IN) | payer MEDICARE, MEDICAID, SELFPAY ==
--- OUTSIDE RECORDS SUMMARY | 2023-03-06 05:00 | XMS_ITS | Continuity of Care Document ---
Author Organization [facility] Address [address] [place] [address] Phone Care Team Providers Care [place] Supervisor Name Role Phone Trevor RINCON FACS RVT Jennifer NGUYEN Unavailable Unavailable Allergies, Adverse Reactions, Alerts Substance Reaction Status Criticality methotrexate Active No Information Medications Medication Instructions Dosage Effective Dates (start - stop) Status Comments doxycycline monohydrate 100 mg tablet take 1 tablet by oral route, to start 2 hours before each surgery, then once again 12 hours after. - Active Pls instruct patient to take one tablet two hours before each surgery procedure and another tablet 12 hours after. aspirin 81 mg chewable tablet - Active losartan 25 mg tablet - Acti ve Matzim LA 240 mg tablet,extended release - Active hydroxychloroquine 200 mg tablet - Active levothyroxine 50 mcg capsule - Active Linzess 145 mcg capsule - Ac tive nitrofurantoin macrocrystal 50 mg capsule - Active tizanidine 2 mg capsule - Ac tive Procedures Procedure Date Office/Outpt E&M Established 15 Mins February Duplex Scan-extrem Veins; Uni/ Varithena, Single Truncal Vein Endovenous Laser, 1st Vein Offic/outpt E&m Estab 5 Min Trial Office/Outpt E&M Established 15 Mins Dec Duplex Scan-extrem Veins; Comp Office/Oupt E&M New Pt 30 Mins Advance Directives Directive Yes / No Effective Date File Name No Information Encounters Encounter Description Practice Location Reason(s) For Visit Diagnoses Date Provider Providers Copied on Encounter Office/Outpt E&M Established 15 Mins [facility], [address] [place] [address] Dr Lozano [address], [id number], [place] tel:[phone] [facility] [place] Venous insufficiency (chronic) (peripheral) 3 Trevor RINCON FACS T WENDY Shi. [address], [address], [place], [address], [place]. tel:[phone] Referring Provider: Kevin Rosenbaum DPM, [facility] [place] [address], [facility] [place], [address]. tel:[phone] [facility], [address] [place] [address] Dr Lozano [address] [address], [id number], [place] tel:[phone] [facility] [place] Encntr for f/u exam aft trtmt for cond oth than malig neoplmVenous insufficiency (chronic) (peripheral) 3 Trevor RINCON FACS T WENDY Shi. [address], [address], [place], [address], [place]. tel:[phone] Referring Provider: Kevin Rosenbaum DPM, [facility] [place] [address], [place], [address]. tel:[phone] [facility], [address] [place] [address] Dr Lozano [address], [id number], [place] tel:[phone] [facility] [place] Venous insufficiency (chronic) (peripheral) 3 Trevor RINCON FACS Roe Shi. [address], [address], [facility] [place], [address], [place]. tel:[phone] Referring Provider: eKvin Rosenbaum DPM, [facility] [place] [address], [facility] [place], [address]. tel:[phone] [facility], [address] [place] [address] Dr Lozano [address], [place], [id number], [place] tel:[phone] [facility] [place] Venous insufficiency (chronic) (peripheral) 3 Trevor Shi. [address] [facility], [place] [address], [place], [address], [place]. tel:[phone] Referring Provider: Kevin Rosenbaum DPM, [facility] [place] [address], [facility] [place], [address]. tel:[phone] Offic/outpt E&m Estab 5 Min Trial [facility], [address] [place] [address] Dr Lozano [address], [id number], [place] tel:[phone] [facility] [place] Venous insufficiency (chronic) (peripheral) 3 Trevor Shi. [address] [place] [address], [place], [address], [place]. tel:[phone] Referring Provider: Kevin Rosenbaum DPM, [facility] [place] [address], [facility] [place], [address]. tel:[phone] [facility], [address] [place] [address] Dr Lozano [address], [place], [id number], [place] tel:[phone] [facility] [place] No Information 3 Trevor Shi. [facility] [place] [address], [place], [address], [place]. tel:[phone] Referring Provider: Kevin Rosenbaum DPM, [facility] [place] [address], [facility] [place], [address]. tel:[phone] Office/Outpt E&M Established 15 Mins [facility], [address] [place] [address] Dr Lozano [address], [id number], [place] tel:[phone] [facility] [place] Venous insufficiency (chronic) (peripheral) 3 Trevor Shi[address] [place] [address], [place] [address], [facility] [place], [address], [place]. tel:[phone] Referring Provider: Kevin Rosenbaum DPM, [address] [place] [address], [place], [address]. tel:[phone] [facility], [address] [place] [address] [address], [place], [id number], [place] tel:[phone] [facility] [place] Venous insufficiency (chronic) (peripheral) 3 Trevor RINCON FACS Roe Shi. [facility] [facility], [place] [address], [facility] [place], [address], [place]. tel:[phone] Referring Provider: Kevin Rosenbaum DPM, [address] [place] [address], [place], [address]. tel:[phone] Office/Oupt E&M New Pt 30 Mins [facility], [address] [place] [address] [address], [place], [id number], [place] tel:[phone] [facility] [place] Venous insufficiency (chronic) (peripheral)Lo calized edema 3 Trevor RINCON FACS Roe Shi. [address] [place] [address], [place] [address], [place], [address], [place]. tel:[phone] Referring Provider: Kevin Rosenbaum DPM, [address] [place] [address], [place], [address]. tel:[phone] Family History Family Member Type Diagnosis Age At Onset No Information Payers Payer name Insurance type Covered constitution party ID Authoriza tion(s) Medicare DEJUAN ZAPATA [id number] Medical [place] [id number] Social History Type Description Quantity Date Captured Comments Alcohol Use Details No Caffeine Use Details Unknown Tobacco Use Status Never smoked tobacco 2022 Smoking Status Never smoker Non-Smoking Tobacco Use Details : No Details Available : No Details Available Sex Female Chief Complaint And Reason For Visit No Information Reason For Referral Reason For Referral No Information Plan Of Treatment Date Type Action Status Goal Tobacco cessation counseling completed History Of Present Illness Encounter Date Complaint History Of Prese nt Illness No Information Functional Status Date Functional Assessmen t No Information Instructions Date Instruction Additional Royar guillaume Patient education booklet given Related to Venous insufficiency (chronic) (peripheral) Assessments Type Assessment Date assessment Venous insufficiency (chronic) ( peripheral) Patient Care Teams Name Effective Dates (start - stop) Status Members No Information
--- OUTSIDE RECORDS SUMMARY | 2024-11-26 06:15 | XMS_ITS ---
Author Organization [facility] Address [address] [place] [address] Care Team Providers Care Floor Coverer Name Role Phone Neo Paige MD Primary Care Provider Kristel Craven Unavailable [phone] Allergies Allergen (clinical drug ingredient) Drug/Non Drug Allergy documented on EMR Reaction Allergy Type Onset Date Status Information temporarily unavailable Methotrexate Unknown Drug Allergy Active Encounters Encounter Location Date Provider Diagnosis [address] [address] 11/26/2024 Kristel Washburn Plan Of Treatment Next Appt Details Provider Name:Kristel dougals, 10/28/2025 10:30:00 AM, [address] [place] [address], [id number], Progress Notes * Laurence MOHANDOB:1940 ( 84 yo F)Acc No.[id number]:11/26/2024 Progress Note Patient: Laurence AGUILERA Provider: Latoya Washburn DPM :1940 A ge:84 Y S ex:Female Date:11/26/2024 Address:[address] [place] [address] [address], [place] Pcp:Neo Paige MD Subjective: * Chief Complaints: * * Medical History: A rthritis, Chicken pox, High blood pressure, Measles, Mumps. * Allergies: M ethotrexate. Objective: * Vitals: Assessment: Plan: * Treatment: * Images: * The named appointment provid er may or may not be the originator of this progress note, and it is not deemed complete until electronically signed by the appointment provider. Sign off status: Pending * Provider: Latoya Washburn DPM Date: 0 11/26/2024 Generated for Jm castillo/Gabriela/Daniel on: 11/13/2024 08:15 PM EST
--- OUTSIDE RECORDS SUMMARY | 2025-02-28 05:15 | XMS_ITS ---
Author Organization [facility] Address [address] [place] [place] [address] Care Team Providers Care Manager System Name Role Phone Neo Paige MD Primary Care Provider Kristel Craven [phone] Encounters Encounter Location Date Provider Diagnosis [address] [address] 02/28/2025 Kristel Washburn Plan Of Treatment Next Appt Details Provider Name:Kristel douglas, 10/28/2025 10:30:00 AM, [address] [place] [address], [address], Progress Notes * Laurence MOHANDOB:1940 ( 84 yo F)Acc No.[id number]:02/28/2025 Progress Note Patient: Laurence AGUILERA Provider: Latoya Washburn DPM :1940 A ge:84 Y S ex:Female Date:02/28/2025 Address:[address] [facility] [address], [id number] Pcp:Neo Paige MD Subjective: * Chief Complaints: * * Medical History: Objective: * Vitals: Assessment: Plan: * Treatment: * Images: * The named appointment provid er may or may not be the originator of this progress note, and it is not deemed complete until electronically signed by the appointment provider. Sign off status: Pending * Provider: Latoya Washburn DPM Date: 0 02/28/2025 Generated for Jm castillo/Gabriela/Daniel on: 1 11/13/2024 08:15 PM EST
--- OUTSIDE RECORDS SUMMARY | 2025-09-10 23:59 | XMS_ITS | Continuity of Care Document ---
Author Organization [facility] Address [address] [address]- Care Team Providers Care Critical Care Physician Assistant Name Role Phone Иван RINCON, Radha Hernandez Primary Care Physician Encounter [facility] Date(s): 08/11/25 - 09/10/25 [facility] [address] [place], [place] [address] Encounter Type: Triage Allergies, Adverse Reactions, Alerts Substance Criticality Severity Reaction Reaction Severity Status methotrexate 1 Activ e 1breathing problems Immunizations Given and Recorded Vaccine Date Status Refusal Reason influenza virus vaccine, inactivated 07/18/25 Villa rded influenza virus vaccine, inactivated 06/27/23 Villa rded influenza virus vaccine, inactivated 07/11/22 Villa rded influenza virus vaccine, inactivated 07/13/21 Villa rded influenza virus vaccine, inactivated 07/21/20 Villa rded influenza virus vaccine, inactivated 08/22/19 Give n influenza virus vaccine, inactivated 08/29/18 Villa rded influenza virus vaccine, inactivated 08/06/18 Villa rded influenza virus vaccine, inactivated 1 07/28/16 Gi mirian influenza virus vaccine, inactivated 2 08/27/15 Gi mirian influenza virus vaccine, inactivated 3 07/10/14 Gi mirian influenza virus vaccine, inactivated 4 07/10/14 Gi mirian influenza virus vaccine, inactivated 5 05/29/13 Re corded influenza virus vaccine, inactivated 6 11/22/12 Gi mirian influenza virus vaccine, inactivated 7 07/16/11 Gi mirian influenza virus vaccine, inactivated 8 08/25/10 Gi mirian Influenza Virus Vaccine (oldterm) 10/01/24 Recorde d Influenza Virus Vaccine (oldterm) 9 07/31/07 Given SARS-CoV-2 mRNA (pejxguz-ngyq-vfprw) vax 10/01/24 Recorded SARS-CoV-2 mRNA (jnywkot-rrma-bdllk) vax 10 07/14/23 Recorded SARS-CoV-2 (COVID-19) mRNA-1273 vaccine 01/17/22 R ecorded SARS-CoV-2 (COVID-19) mRNA-1273 vaccine 08/27/21 R ecorded SARS-CoV-2 (COVID-19) mRNA-1273 vaccine 12/02/20 R ecorded tetanus-diphtheria toxoids (Td) 11 09/05/13 Given tetanus-diphtheria toxoids (Td) 12 06/28/03 Given FluLaval (oldterm) 06/25/09 Given Pneumococcal Vaccine (oldterm) 13 07/31/07 Given Pneumococcal Poly (PPV23) (oldterm) 14 12/27/06 Gi mirian 1Result Comment: [07/28/2016] pt. tolerated inj. without complications...CO 2Result Comment: [08/27/2015] given without incident....vs 3Result Comment: [07/10/2014] given w/out incident 4Result Comment: [07/10/2014] given w/out incident 5Location History: another dr office 6Admin Note: dr vila 7Admin Note: done @ Dr. Vila office 8Admin Note: 9Admin Note: SANOFI PASTEUR pt met criteria 10Result Comment: [facility] 11Result Comment: [09/05/2013] given w/o incident..AA 12Admin Note: DONE IN [facility] 13Admin Note: pt met criteria 14Admin Note: PATIENT DECLINES Medications acetaminophen 325 mg oral tablet 650 mg, 2, tablet, By Mouth, Every 4 hours, PRN, Refills 0, Maintenance, pain, 03/17/22 11:00:00 AM EDT, Partial fill upon patient request if the prescription is for a schedule II opioid drug. Start Date: 03/17/22 Status: Ordered Medication Dispense Status: Completed Total Allowed Fills: 1 Fills Dispensed: 0 Ascriptin Enteric 81 mg oral enteric coated tablet 1 tablet = 81 mg, By Mouth, Daily, # 30 tablet, 0 Refills, Maintenance, 05/02/13 11:21:34 AM EDT, ECTablet Start Date: 05/02/13 Status: Ordered Medication Dispense Status: Completed Quantity: 30.0 Unit: tablet Total Allowed Fills: 1 Fills Dispensed: 0 diclofenac 1% topical gel 1 application, Topically, 4 times a day, PRN joint pain, # 100 Gm, 11 Refills, Maintenance, 06/04/2411:28:00 AM EDT, Gel, [facility]/pharmacy #[id number], Partial fill upon patient request if the prescription is for a schedule II opioid drug., 157.4, cm, 06/04/24 11:02:00 EDT, Height, 50.6, kg, 06/04/24 11:02:00 EDT, Dry Weight Start Date: 06/04/24 Status: Ordered Medication Dispense Status: Completed Quantity: 100.0 Unit: g Total Allowed Fills: 12 Fills Dispensed: 0 docusate sodium 100 mg oral capsule 100 mg, 1, capsule, By Mouth, 2 times a day, PRN, # 60 capsule, Refills 11, Maintenance, for constipation, 02/20/24 1:11:00 PM EDT, Partial fill upon patient request if the prescription is for a schedule II opioid drug. Start Date: 02/20/24 Status: Ordered Medication Dispense Status: Completed Quantity: 60.0 Unit: capsule Total Allowed Fills: 1 Fills Dispensed: 0 famotidine 20 mg oral tablet See Instructions, 1 tablet By Mouth Daily before breakfast, # 90 each, Refills 3, Tot. Refills 3, Maintenance, 09/03/24 11:47:00 AM EST, Instructions Replace Required Details, Route to Pharmacy Electronically, [facility]/pharmacy #[id number], Partial fill upon patient request if the prescription is for a schedule II opioid drug., 157.4, cm, 09/03/24 11:34:00 EST, Height, 52.5, kg, 09/03/24 11:34:00 EST, Dry Weight Start Date: 09/03/24 Status: Ordered Medication Dispense Status: Completed Quantity: 90.0 Unit: each Total Allowed Fills: 4 Fills Dispensed: 0 levothyroxine 0.05 mg oral tablet 1 tablet, By Mouth, Daily, # 90 tablet, 3 Refills, Maintenance, 06/05/25 10:53:00 AM EDT, [id number], 157.4, cm, 06/05/25 10:22:00 EDT, Height, 51.9, kg, 06/05/25 10:22:00 EDT, Dry Weight Start Date: 06/05/25 Status: Ordered Medication Dispense Status: Completed Quantity: 90.0 Unit: tablet Total Allowed Fills: 4 Fills Dispensed: 0 Linzess 145 mcg oral capsule 1 capsule = 145 mcg, By Mouth, Daily, # 30 capsule, 11 Refills, Maintenance, 05/07/25 3:57:00 PM EDT, Capsule, [id number], 157.4, cm, 02/27/25 11:07:00 EDT, Height, 51.5, kg, 02/27/25 11:07:00EDT, Dry Weight Start Date: 05/07/25 Status: Ordered Medication Dispense Status: Completed Quantity: 30.0 Unit: capsule Total Allowed Fills: 12 Fills Dispensed: 0 losartan 25 mg oral tablet 1 tablet, By Mouth, Daily, # 90 tablet, 3 Refills, Maintenance, 06/05/25 10:53:00 AM EDT, [id number], 157.4, cm, 06/05/25 10:22:00 EDT, Height, 51.9, kg, 06/05/25 10:22:00 EDT, Dry Weight Start Date: 06/05/25 Status: Ordered Medication Dispense Status: Completed Quantity: 90.0 Unit: tablet Total Allowed Fills: 4 Fills Dispensed: 0 Matzim LA 240 mg/24 hours oral tablet, extended release 1 tablet, By Mouth, Daily, # 90 tablet, 3 Refills, Maintenance, 06/05/25 10:52:00 AM EDT, [id number], 157.4, cm, 06/05/25 10:22:00 EDT, Height, 51.9, kg, 06/05/25 10:22:00 EDT, Dry Weight Start Date: 06/05/25 Status: Ordered Medication Dispense Status: Completed Quantity: 90.0 Unit: tablet Total Allowed Fills: 4 Fills Dispensed: 0 Multivitamin With Minerals See Instructions, one tablet By Mouth dailiy, 0 Refills, Maintenance, 07/02/13 8:21:34 AM EDT Start Date: 07/02/13 Status: Ordered Medication Dispense Status: Completed Total Allowed Fills: 1 Fills Dispensed: 0 Plaquenil Tablet See Instructions, 100 mg By Mouth every day, Refills 0, Tot. Refills 0, 03/13/08 9:16:40 AM EDT Start Date: 03/13/08 Status: Ordered Medication Dispense Status: Completed Total Allowed Fills: 1 Fills Dispensed: 0 tiZANidine 2 mg oral tablet See Instructions, 1 tablet By Mouth before bedtime as needed for muscle pain or spasm, Refills 0, Maintenance, 02/20/24 1:13:00 PM EDT, Instructions Replace Required Details, Partial fill upon patient request if the prescription is for a schedule II opioid drug. Start Date: 02/20/24 Status: Ordered Medication Dispense Status: Completed Total Allowed Fills: 1 Fills Dispensed: 0 Xeljanz 5 mg oral tablet 1 tablet = 5 mg, By Mouth, 2 times a day, # 60 tablet, 0 Refills, Maintenance, 04/02/14 2:52:18 PM EDT, Tablet Start Date: 04/02/14 Status: Ordered Medication Dispense Status: Completed Quantity: 60.0 Unit: tablet Total Allowed Fills: 1 Fills Dispensed: 0 Problem List Condition Confirmation Course Effective Dates Status H ealth Status Informant Constipation Confirmed Active Gastroesophageal reflux disease with hiatal hernia Confirmed Active Herpes zoster Confirmed Active History of recurrent UTIs Confirmed Active Hypertension Confirmed Active Hypothyroidism Confirmed Active Osteoarthritis Confirmed Active Rheumatoid arthritis Confirmed Active Transient neurologic deficit Confirmed Active Social History Social History Type Response Smoking Status Never smoker; Tobacc o user in household: No entered on: 12/05/13 Sexual Orientation Self described orien tation: ; Straight or heterosexual Sex Sex Representation Female (finding) Patient Care team information Care Team Personnel Name: Radha Oates MD Position: [facility] Physician - Primary Care Member Role: PCP Address: [address] [place] [address] Adult & [place], [place] [address] Telecom: Care Team Related Persons Name: SAÚL MARTINEZ Name: LATASHA PETERSON Insurance Providers Guarantor name: JESSE PETERSON Health Plan Information #: 1 Payer: MEDICARE B Payer Identifier: NA Member Number: [id number] Group Number: NA Subscriber Identifier: NA Relationship to Subscriber: self Coverage Type: NA Coverage Verification Date: NA Telecom: NA Address: NA Health Plan Information #: 2 Payer: [employer] Payer Identifier: NA Member Number: [id number] Group Number: NA Subscriber Identifier: NA Relationship to Subscriber: self Coverage Type: MEDICAID Coverage Verification Date: NA Telecom: NA Address: NA
--- NOTE | ~2025-09-13 | MR_ITS ---
CLINICAL HISTORY: Expressive aphasia MR Brain without gadolinium Comparison: CT - CT HEAD NECK ANGIOGRAPHY WITH IV CONTRAST - 09/14/25 00:56 EST Findings: No restricted diffusion. No intra-axial mass or acute hemorrhage. There are several small foci of hemosiderin deposition. No midline shift. No hydrocephalus. There is cerebral volume loss, compatible with advanced age. There are moderately severe white matter changes. Vascular flow voids are intact. Orbital contents are unremarkable. The sinuses and mastoid air cells are clear. No focal bone lesion. IMPRESSION: No acute findings. This document has been electronically signed by: Sharon Rothman MD on 09/14/2025 14:28:28
--- NOTE | ~2025-09-13 | CT_ITS ---
CLINICAL HISTORY: non specific, non focal encephalopathy CT head without contrast Comparison: CT/SR - CT HEAD/BRAIN WO IV CON - 01/25/25 16:34 EDT Findings: Involutional change and nonspecific white matter hypodensity. No intracranial mass, midline shift, hydrocephalus, or acute hemorrhage. Orbits, paranasal sinuses, and mastoid air cells are unremarkable. No skull fracture Impression: 1. No acute findings This document has been electronically signed by: Sharon Rothman MD on 09/13/2025 20:53:55
--- NOTE | ~2025-09-13 | CT_ITS ---
CLINICAL HISTORY: Expressive aphasia CT angiography head and neck with contrast. 3D Postprocessing. Comparison: CT/SR - CT HEAD/BRAIN WO IV CON - 09/13/25 20:[address]/SR - CT HEAD/BRAIN WO IV CON - 01/25/25 16:34 EDT Findings: Brain demonstrates diffuse cerebral atrophy with moderate burden of subcortical and periventricular white matter hypodensities. Perivascular spaces or small lacunar are present in the bilateral basal ganglia and left thalami. Midbrain, nehal, medulla, and cerebellum are normal. The petrous and cavernous internal carotid arteries are normal. Ophthalmic artery origins are normal. Mild atherosclerotic plaque in the cavernous and supraclinoid internal carotid arteries without high-grade stenosis. The right posterior communicating artery demonstrates atherosclerotic narrowing. The left posterior communicating artery demonstrates mild atherosclerotic narrowing. The A1 segments are codominant. There is a small anterior communicating artery. A2 segments are normal. The left middle cerebral artery is patent. No aneurysm, high-grade stenosis, or large vessel occlusion. The right MCA demonstrates mild atherosclerotic narrowing the M2 and M3 divisions are normal. No large vessel occlusion. Left vertebral artery is dominant. Right vertebral artery terminates predominantly as the right posterior inferior cerebellar artery. There is a small left posterior inferior cerebellar artery arising extradural early. Basilar is patent. Right V4 segment is hypoplastic distally. Anterior inferior and superior cerebellar arteries are normal. Posterior cerebral arteries demonstrate mild atherosclerotic disease without high-grade stenosis or occlusion. Dural venous sinuses are normal. Internal jugular veins are normal. Orbits are normal. Otomastoid spaces and paranasal sinuses are clear. The aortic arch demonstrates atherosclerotic calcification. There is a common origin of the left common and brachiocephalic. Moderate atherosclerotic plaque is present within the left subclavian proximal to the origin of the left vertebral artery. There is moderate stenosis at the origin of the left vertebral artery. There is no stenosis at the origin of the right vertebral artery. Vertebral arteries are left dominant. Osteophytes demonstrate moderate mass effect upon the right V2 segment. The left V3 segment demonstrates focal angulation and diffuse ectasia. Right V3 segment is patent. The left common carotid artery is patent. Left carotid bifurcation demonstrates significant atherosclerotic plaque measuring greater than 6 mm with plaque ulceration. There is 50% stenosis of the proximal left ICA. Distal left ICA is patent. The right common carotid artery is patent. There is calcified and atheromatous plaque at the right carotid bifurcation measuring 3 mm there is less than 50% stenosis of the right ICA distal right internal carotid artery is patent. Cervical spine demonstrates fusion of C5/C6/C7. Anterolisthesis of C3 on C4 and C4 on C5 contributing to moderate spinal canal stenosis at C4/5 and severe foraminal narrowing at C3/4 and C4/5. IMPRESSION: Atherosclerotic plaque at the carotid bifurcations with left ICA 50% stenosis by NASCET criteria. Significant and ulcerated plaque is present at the left carotid bifurcation. No significant right ICA stenosis. Moderate origin stenosis of the dominant left vertebral artery. No intracranial large vessel occlusion or aneurysm. This document has been electronically signed by: Jose Li III, MD PHD on 09/14/2025 02:16:36
[2025-09-13 18:22] VITALS: BP 168/78; PULSE 81; O2SAT 98
[2025-09-13 18:32] VITALS: BP 169/67; PULSE 74; RESP 18; TEMP 36.6; O2SAT 98; BMI 21.2
--- NOTE | 2025-09-13 18:54 | ECG_ITS ---
Test Reason : hyperension Blood Pressure : */* mmHG Vent. Rate : 81 BPM Atrial Rate : 81 BPM P-R Int : 164 ms QRS Dur : 76 ms QT Int : 418 ms P-R-T Axes : 52 -31 50 degrees QTcB Int : 485 ms Normal sinus rhythm Left axis deviation Nonspecific T wave abnormality Abnormal ECG When compared with ECG of 25-Jan-2025 15:55, Nonspecific T wave abnormality no longer evident in Anterior leads Referred By: Generic ED Physician Electronically Signed By: EZEKIEL MENDOZA
[2025-09-13 19:30] LABS: MANUAL DIFF FLAG NO
[2025-09-13 19:46] LABS: Alanine Aminotransferase 12 U/L (0-31); Albumin Level 4.4 g/dL (3.5-5.0); Alkaline Phosphatase 86 U/L (39-117); Anion Gap 15 (12-20); Aspartate Amino Transferase 23 U/L (5-31); Blood Urea Nitrogen 22 mg/dL (9-16); Calcium 9.1 mg/dL (8.4-10.2); Carbon Dioxide 23 mmol/L (22-29); Chloride 102 mmol/L (96-108); Creatinine Clr Calc Pharmacy 35.9; Estimated Glomerular Filt Rate > 60; Magnesium 1.7 mg/dL (1.6-2.6); Potassium 3.7 mmol/L (3.3-5.1); Sodium 136 mmol/L (135-145); Total Protein 7.3 g/dL (6.5-8.0)
[2025-09-13 19:53] LABS: COVID-19 Test Negative (Negative); IDNOW Serial# 6674DD1D
[2025-09-13 19:53] LABS: Troponin-I High Sensitivity 13.2 ng/L (<3.5-17.0)
[2025-09-13 19:55] LABS: IDNOW Serial# 58CA691E; Influenza B2 Negative (Negative)
--- OUTSIDE RECORDS SUMMARY | 2025-09-13 20:15 | XMS_ITS | Data Portability ---
Author Organization [place] [facility] Address [address] [place] [address] Care Team Providers Care Second Grade Teacher Name Role Phone MARYLIN HOWARD Primary Care Provider [phone] Assessment Encounter Date Assessment Date Assessment LastModified by Organization Details LastModified Time 07/01/2025 07/01/2025 Annual visit: Otoscopy: Clear, AU. Audiogram: Decreased discim. Hearing aid: Cleaned: yes Wax guard changed: yes Listening check: good Warranty expires: Aids are from 2019 Notes: I have encouraged her to go for a Cochlear Implant evaluation. She is not interested. She feels she does better functionally with her hearing aids than her test would indicate. She is going to request funding for new aids from the community. She will need to come back for impressions once approved. [email or web address] Not available 07/03/2025 14:43:50 Plan of Treatment Reminders Order Date Submit Date Provider Last Modified By Organization Details Last Modified Time Details Appointments None record ed. Lab None record ed. Referral None record ed. Procedures None record ed. Surgeries None record ed. Imaging None record ed. Medication Orders None record ed. Patient TargetsNo targets recorded. Patient InstructionsNo instructions recorded. Reason for Referral None Reported. Results Created Date Observation Date Name Description Value Unit Range Abnormal Flag Note LastModifiedBy Organization Detail LastModifiedTime 07/03/20 audio gram No observ ation record ed. BARCODE Not Available 2024 16:50:35 Result Notes None recorded. Problems Name Problem SNOMED Code Status Onset Date Resolution Date Notes Provider Name and Address Organization Details Recorded Time Sensorineu ral hearing loss of bilateral ears 971312468 Active 2014 Sensorineu ral HL, bilateral; Note: Date Diagnosed: 01/22/2015 3:59 PM (389.18) ; Start Date : 01/22/2015 Sensorine ural hearing loss, bilateral; Note: Date Diagnosed: 09/14/2015 3:58 PM (H90.3) KAYLAN ESTRADA [address] [facility], [address], [facility] - [facility] 5 13:26:57 Problem Notes None recorded. Procedures Surgical History Date Name Laterality Status Provider Name and Address Organization Details Recorded Time 5 Air & Speech Audio - 11316 & 76922 completed TEA WERNER, [facility] [address] [facility],[address], [address], [facility] 07/03/2025 14:40:13 4 Air only Audio - 11104 completed TEA WERNER [address], [address], [facility] 06/25/2024 10:45:55 4 SRT & Speech Recognition - 04609 completed TEA WERNER, [address], [address], [facility] 06/25/2024 10:45:59 Imaging Results None recorded. Procedure Notes None recorded. Medical Equipment None Reported. Allergies Allergen ID Allergen Name Allergen Category Reaction Reaction Severity Criticality Documentation Date Start Date Code Code System Note Provider Name and Address Organization Details Recorded Time 262975 methotrex ate medicatio n other Not available Not available 02/27/2024 6851 RxNorm React ion: other react ion, Unkno wn; Not Available [facility] 4 01:26:29 Medications Name Sig Start Date Stop [...] Not Available Not Available No t Available tramadol 50 mg tablet TAKE 1 TABLET BY MOUTH EVERY 6 HOURS NEEDED FOR PAIN active Not Available Not Available No [...] chewable tablet 2020 active Medicatio n ID: [id number] Br and Name: [facility] Send Method: E-Prescri bed Subs Allowed: subs OK Medica tionGener icName: [facility] Not Available Not Available Not Available ammonium lactate 12 % topical cream PLEASE SEE ATTACHED FOR DETAILED DIRECTION S active Not Available Not Available No t Available hydroxychl oroquine 200 mg tablet TAKE 1 TABLET BY MOUTH EVERY DAY active Not Available Not Available No t Available diltiazem ER 240 mg tablet,ext ended release 24 hr TAKE 1 TABLET BY MOUTH EVERY DAY active Not Available Not Available No t Available nitrofuran toin monohydrat e/macrocry stals 100 mg capsule TAKE 1 CAPSULE BY MOUTH TWICE A DAY FOR 5 DAYS active Not Available Not Available No [...] mcg capsule 2020 active Medicatio n ID: [id number] Br and Name: Linzess S end Method: [...] Diagnosis SNOMED-CT Code Diagnosis ICD10 Code Diagnosis IMO Codes Diagnosis Note [id number] KAYLAN ESTRADA [facility] [place] [address] [place] [address] 06/24/2024 15:05:08 06/26/2024 08:51:16 Sensorineural hearing loss of bilateral ears 448674403 H90.3 Audiologic al evaluation results:Ri ght ear:Normal sloping to profound sensorineu ral hearing loss with fair/poor word recognitio n.Left ear:Mild sloping to profound sensorineu ral hearing loss with poor word recognitio n. [id number] KAYLAN ESTRADA [facility] [place] [address] [place] [address],[address] [address] 12/24/2024 12:49:34 12/25/2024 23:49:47 Sensorineural hearing loss of bilateral ears [id number] H90.3 Audiologic al evaluation results:Ri ght ear:Normal sloping to profound sensorineu ral hearing loss with fair/poor word recognitio n.Left ear:Mild sloping to profound sensorineu ral hearing loss with poor word recognitio n. [id number] KAYLAN ESTRADA [facility] [place] [address] [place] [address],[facility] [address] [place] [address] 07/01/2025 12:50:15 07/07/2025 09:05:46 Sensorineural hearing loss of bilateral ears 130662108 H90.3 Audiologic al evaluation results:Ri ght ear:Normal sloping to profound sensorineu ral hearing loss with poor word recognitio n.Left ear:Mild sloping to profound sensorineu ral hearing loss with poor word recognitio n. [id number] KAYLAN ESTRADA [facility] [place] [address] [place] [address] 07/15/2025 13:00:47 07/18/2025 09:00:58 Sensorineural hearing loss of bilateral ears [id number] H90.3 Audiologic al evaluation results:Ri ght ear:Normal sloping to profound sensorineu ral hearing loss with poor word recognitio n.Left ear:Mild sloping to profound sensorineu ral hearing loss with poor word recognitio n. [id number] KAYLAN ESTRADA [place] [facility] [place] [address] [facility] [address] [place] [address] 08/05/2025 09:02:17 08/07/2025 10:20:28 Sensorineural hearing loss of bilateral ears [id number] H90.3 Hearing Aid Orientatio n Manufactur er: Phonak Infinio 90RColor: sand beigeEarpi shayy: Power c-shells, length 1 Serial NumbersRig ht: [id number] eft: [id number] Warranty: 08/22/2028 Accessorie s: Pattern Setter ELISE Real ear: Done with very good success with SR pushed out Reviewed:U sing new chargerCle aning and wax guards is the samepaired to phone Follow up 3 weeks.Patricia ent knows to call with any major problems.* PT did sign P&S- did not copy it [id number] KAYLAN ESTRADA [facility] [place] [address] [facility] [address] [place] [address] 08/26/2025 09:28:22 08/29/2025 00:11:26 Sensorineural hearing loss of bilateral ears [id number] H90.3 Hearing Aid Orientatio n Manufactur er: Phonak Infinio 90RColor: sand beigeEarpi shayy: Power c-shells, length 1 Serial NumbersRig ht: [id number] eft: [id number] Warranty: 08/22/2028 Accessorie s: Pattern Setter ELISE Real ear: Done with very good success with SR pushed out Reviewed:U sing new chargerCle aning and wax guards is the samepaired to phone Follow up 3 weeks.Patricia ent knows to call with any major problems.* PT did sign P&S- did not copy it Health Concerns Section Related Observation LastModified by Organization Detai ls LastModified Time None Recorded Concern Status LastModified by Organization Details LastModified Time None Recorded Advance Directives Directive None Recorded Payers Insurance Date Sequence Insurance Name Policy Number Policy Noriega Covered Member ID Noriega Member ID Guarantor Name 08/26/2025 1 [place] [employer] Laurence Laurenbeth [id number] Laurence Mohan 08/26/2025 2 [place]ICAID-[place]: [facility] Laurence Kimberlee [id number] Laurence Mohan OBGyn Episode No OBEpisode recorded.
--- OUTSIDE RECORDS SUMMARY | 2025-09-13 20:15 | XMS_ITS | Patient Health Record ---
Author Organization [facility] Address [address] [facility] [place] [address] Care Team Providers Care Pick Pulling Machine Operator Name Role Phone Neo Paige MD Primary Care Provider UnavailKristel Almaguer Unavailable [phone] Kevin Kraus Unavailable [phone] Allergies Allergen (clinical drug ingredient) Drug/Non Drug Allergy documented on EMR Reaction Allergy Type Onset Date Status Information temporarily unavailable Methotrexate Unknown Drug Allergy Active Reason For Referral No Information Medications Medication SIG (Take, Route, Frequency, Duration) Notes Start Date End Date Status Aspirin 81 MG 1 tablet Orally Once a day; Duration: 30 day(s) Active Linzess Active Hydroxychloroquine Sulfate 200 MG as directed Orally Active Xeljanz 5 MG 1 tablet Orally Twice a day; Duration: 30 day(s) Active Potassium Active dilTIAZem HCl ER 240 MG 1 capsule on an empty stomach in the morning Orally Once a day; Duration: 30 day(s) Active Nitrofurantoin Macrocrystal 50 MG 1 capsule with food or milk Orally Once a day; Duration: 30 day(s) Not-Taking Levothyroxine Sodium 50 MCG 1 tablet on an empty stomach in the morning Orally Once a day; Duration: 30 day(s) Active Matzim LA Active Ammonium Lactate 12 % 1 application Externally to affected areas of dry skin to feet except for between the toes Twice a day; Duration: 30 days Active Multivitamins Active Immunizations Vaccine Route Administration Date Status Comme nts Influenza Unknown 06/18/2024 Administered COVID-19 Moderna Vaccine Unknown 01/15/2022 Administered 11/03/20, 12/02/20 , 08/27/21 Social History Tobacco Use: Social History Observation Description Date Details (start date - stop date) Never Smoker NA - NA Alcohol Screen Question Answer Notes Did you have a drink containing alcohol in the p ast year? No Points 0 Interpretation Negative Tobacco use other than smoking: Question Answer Notes Are you an other tobacco user? No Tobacco Control (Standard) Question Answer Notes Tobacco use: Nonsmoker Additional Findings: Tobacco non-user Current no nsmoker AUDIT-C (Standard) Question Answer Notes Did you have a drink containing alcohol in the p ast year? No Points 0 Interpretation Negative Problems Problem Type SNOMED Code ICD Code Onset Dates Problem Status W/U Status Risk Notes Problem Information temporarily unavailable Hallux valgus (acquired), left foot (M20.12) Active confirmed Problem Information temporarily unavailable Hallux valgus (acquired), right foot (M20.11) Active confirmed Problem Information temporarily unavailable Other hammer toe(s) (acquired), right foot (M20.41) Active confirmed Problem Information temporarily unavailable Other hammer toe(s) (acquired), left foot (M20.42) Active confirmed Problem Information temporarily unavailable Hammertoe of left foot (M20.42) Active confirmed Problem Information temporarily unavailable Venous insufficiency (I87.2) Active confirmed Problem Information temporarily unavailable 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 Vital Signs Heart Rate 76 /min 07/08/2025 Blood pressure diastolic 89 R mm Hg 07/08/2025 Height 5 ft 2 in in 07/08/2025 Blood pressure systolic 160 mm Hg 07/08/2025 Weight 110 lbs 07/08/2025 BMI 20.12 kg/m2 07/08/2025 Procedures Procedure Date Ordered Date Performed Result Body Sit e 35228-RSVUKPG NAIL, 6 OR MORE 04/08/2025 N/A 35865-MRNAGFI NAIL, 6 OR MORE 07/08/2025 N/A Encounters Encounter Location Date Provider Diagnosis [facility] [address] 04/08/2025 Kristel Washburn Pain in right toe(s) M79.674 ; Onychomycosis B35.1 ; Pain in left toe(s) M79.675 and Plantar wart, right foot B07.[address] [facility] [place] [address] 07/08/2025 Kristel Washburn Pain in right toe(s) M79.674 ; Onychomycosis B35.1 ; Pain in left toe(s) M79.675 ; Plantar wart, right foot B07.0 and Xerosis of skin L85.[address] [facility] [address] 11/21/2024 Kevin Kraus [facility] [address] 02/26/2025 Kristel Ortizaker Assessments Encounter Date Diagnosis (ICD Code) Assessment Notes Treatment Notes Treatment Clinical Notes Section Notes 04/08/2025 Pain in right toe(s) (ICD-10 - M79.674) 07/08/2025 Pain in right toe(s) (ICD-10 - M79.674) 07/08/2025 Onychomycosis (ICD-10 - B35.1) 04/08/2025 Onychomycosis (ICD-10 - B35.1) 04/08/2025 Pain in left toe(s) (ICD-10 - M79.675) 07/08/2025 Pain in left toe(s) (ICD-10 - M79.675) 04/08/2025 Plantar wart, right foot (ICD-10 - B07.0) 07/08/2025 Plantar wart, right foot (ICD-10 - B07.0) 07/08/2025 Xerosis of skin (ICD-10 - L85.3) Plan Of Treatment Pending Test Test Name Order Date X ray : Foot, left 3V 06/04/2019 X ray : Foot, left 3V 12/17/2021 X ray : Foot, right 3V 06/04/2019 57558-XVIQPHV NAIL, 6 OR MORE 04/08/2025 25488-LDDXXOF NAIL, 6 OR MORE 07/08/2025 73925-Rvnj Destruction, 1-14 08/27/2024 Next Appt Details Provider Name:Kristel Mckeon stella, 10/28/2025 10:30:00 AM, [address] [address], [place], [address], Insurance Providers Payer Name Payer Address Payer Phone Subscriber Number Group Number Insured Name Patient Relationship to Insured Coverage Start Date Coverage End Date Medicare National [employer]t [employer] [address] [place] [address] [id number] Laurence Mohan Self - patient is the insured [employer] [address] [place] [address] Laurence Mohan Self - patient is the insured Medical (General) History Medical History History ICD Code Arthritis Chicken pox High blood pressure Measles Mumps Surgical History Surgery Date(Month/Year) bladder surgery 2016 neck surgery 1999? Hospitalization History Reason Date(Month/Year) [facility]- fell 2024
--- OUTSIDE RECORDS SUMMARY | 2025-09-13 20:15 | XMS_ITS | Continuity of Care Document ---
Author Organization [place] - [facility], [place] - [facility] Address [address] [address] Care Team Providers Care Senior Production Manager Name Role Phone MARYLIN HOWARD Primary Care Provider Assessment No assessment recorded. Plan of Treatment Reminders Order Date Submit [...] Flag Note LastModifiedBy Organization Detail LastModifiedTime 07/03/20 25 audio gram No observ ation record ed. BARCODE Not Available 2024 16:50:35 Result Notes None recorded. Problems Name Problem SNOMED Code Status Onset Date Resolution Date Notes Provider Name and Address Organization Details Recorded Time Sensorineu ral hearing loss of bilateral ears 234348024 Active 2014 Sensorineu ral HL, bilateral; Note: Date Diagnosed: 01/22/2015 3:59 PM (389.18) ; Start Date : 01/22/2015 Sensorine ural hearing loss, bilateral; Note: Date Diagnosed: 09/14/2015 3:58 PM (H90.3) TEA WERNER , KAYLAN 100 [facility], [place], [address], [place] - [facility] 5 13:26:57 Problem Notes None recorded. Procedures Surgical History Date Name Laterality Status Provider Name and Address Organization Details Recorded Time 5 Air & Speech Audio - 61215 & 47209 completed TEA WERNER, AUD [address] [address], [place], [address], [facility] - [facility] 07/03/2025 14:40:13 4 Air only Audio - 21344 completed TEA CARCAMONAUGH, AUD 100 [facility] [address], [place], [address], [facility] - [facility] 06/25/2024 10:45:55 4 SRT & Speech Recognition - 77345 completed TEA WERNER, AUD 100 [facility] [address], [place], [address], [facility] 06/25/2024 10:45:59 Imaging Results None recorded. Procedure Notes None recorded. Medical Equipment None Reported. Allergies Allergen ID Allergen Name Allergen Category Reaction Reaction Severity Criticality Documentation Date Start Date Code Code System Note Provider Name and Address Organization Details Recorded Time 756415 methotrex ate medicatio n other Not available Not available 02/27/2024 6851 RxNorm React ion: other react ion, Unkno wn; Not Available [facility] 4 01:26:29 Medications Name Sig Start Date [...] chewable tablet 2020 active Medicatio n ID: [id number] Br and Name: Aspirin Childrens Send Method: E-Prescri bed Subs Allowed: subs DC Medica [facility] icName: Aspirin Childrens Not Available Not Available [...] mcg capsule 2020 active Medicatio n ID: [id number] Br and Name: Linzess S end Method: E-Prescri bed Subs Allowed: subs [facility] icName: Linzess Not Available Not Available Not [...] ICD10 Code Diagnosis IMO Codes Diagnosis Note [id number] KAYLAN ESTRADA [place] 100 [facility], [address] [place] [address] 07/01/2025 12:50:15 07/07/2025 09:05:46 Sensorineural hearing loss of bilateral ears 722020773 H90.3 Audiologic al evaluation results:Ri ght ear:Normal sloping to profound sensorineu ral hearing loss with poor word recognitio n.Left ear:Mild sloping to profound sensorineu ral hearing loss with poor word recognitio n. [id number] KAYLAN ESTRADA [place] 100 [facility], [address] [place] [address] 07/15/2025 13:00:47 07/18/2025 09:00:58 Sensorineural hearing loss of bilateral ears 528024721 H90.3 Audiologic al evaluation results:Ri ght ear:Normal sloping to profound sensorineu ral hearing loss with poor word recognitio n.Left ear:Mild sloping to profound sensorineu ral hearing loss with poor word recognitio n. Health Concerns Section Related Observation LastModified by Organization Detai ls LastModified Time None Recorded Concern Status LastModified by Organization Details LastModified Time None Recorded Payers Encounter Date Sequence Insurance Name Policy Number Policy Noriega Covered Member ID Noriega Member ID Guarantor Name 07/15/2025 1 [place] [id number] Laurence Mohan [id number] Laurence Mohan 07/15/2025 2 [place] [facility] Laurence Mohan [id number] Laurence Mohan OBGyn Episode No OBEpisode recorded.
--- OUTSIDE RECORDS SUMMARY | 2025-09-13 20:15 | XMS_ITS | Continuity of Care Document ---
Author Organization [place] - [facility] Address [address] [place] [address] Care Team Providers Care Terminal Computer Operator Name Role Phone MARYLIN HOWARD Primary Care Provider [phone] Assessment Encounter Date Assessment Date Assessment LastModified [...] Sensorineu ral hearing loss of bilateral ears 733911513 Active 2014 Sensorineu ral HL, bilateral; Note: Date Diagnosed: 01/22/2015 3:59 PM (389.18) ; Start Date : 01/22/2015 Sensorine ural hearing loss, bilateral; Note: Date Diagnosed: 09/14/2015 3:58 PM (H90.3) TEA WERNER , [facility] 100 [facility], [address] [place] [address], [address], [facility] - [facility] [place] 5 13:26:57 Problem Notes None recorded. Procedures Surgical History Date Name Laterality Status Provider Name and Address Organization Details Recorded Time 5 Air & Speech Audio - 27380 & 52118 completed TEA WERNER, [address], [address], [facility] 07/03/2025 14:40:13 4 Air only Audio - 80501 completed TEA WERNER, [address], [address], [facility] 06/25/2024 10:45:55 4 SRT & Speech Recognition - 47480 completed TEA WERNER, [address], [address], [facility] 06/25/2024 10:45:59 Imaging Results None recorded. Procedure Notes None recorded. Medical Equipment None Reported. Allergies Allergen ID Allergen Name Allergen Category Reaction Reaction Severity Criticality Documentation Date Start Date Code Code System Note Provider Name and Address Organization Details Recorded Time 907425 methotrex ate medicatio n other Not available Not available 02/27/2024 6851 RxNorm React ion: other react ion, Unkno wn; Not Available [facility] 4 01:26:29 Medications Name Sig Start Date [...] chewable tablet 2020 active Medicatio n ID: [id number] Br and Name: Aspirin Childrens Send Method: [...] mcg capsule 2020 active Medicatio n ID: [id number] Br and Name: Linzess S end Method: E-Prescri bed Subs Allowed: subs [place] Medica tionGener icName: Tong Not Available Not Available Not Available Vitals [...] ICD10 Code Diagnosis IMO Codes Diagnosis Note [id number] KAYLAN ESTRADA [place] 100 [facility], [address] [place] [address] 07/01/2025 12:50:15 07/07/2025 09:05:46 Sensorineural hearing loss of bilateral ears 577064526 H90.3 Audiologic al evaluation results:Ri ght ear:Normal [...] Member ID Noriega Member ID Guarantor Name 07/01/2025 1 [place] [employer] Laurence Novaktung [id number] Laurence Laurenbeth 07/01/2025 2 [place] [facility] Laurence Laurenbeth [id number] Laurence Laurenbeth OBGyn Episode No OBEpisode recorded.
--- OUTSIDE RECORDS SUMMARY | 2025-09-13 20:15 | XMS_ITS | Continuity of Care Document ---
Author Organization [place] - [facility] Address [address] [address] Care Team Providers Care Crayon Grader Name Role Phone MARYLIN HOWARD Primary Care [...] instructions recorded. Reason for Referral None Reported. Problems Name Problem SNOMED Code Status Onset Date Resolution Date Notes Provider Name and Address Organization Details Recorded Time Sensorineu ral hearing loss of bilateral ears 275966784 Active 2014 Sensorineu ral HL, bilateral; Note: Date Diagnosed: 01/22/2015 3:59 PM (389.18) ; Start Date : 01/22/2015 Sensorine ural hearing loss, bilateral; Note: Date Diagnosed: 09/14/2015 3:58 PM (H90.3) KAYLAN ESTRADA [address], [address], [place] - [facility] 13:26:57 Problem Notes None recorded. Procedures Surgical History Date Name Laterality Status Provider Name and Address Organization Details Recorded Time Air & Speech Audio - 61529 & 54868 completed KAYLAN ESTRADA [address], [address], [place] - [facility] 07/03/2025 14:40:13 4 Air only Audio - 85186 completed TEA CARCAMONAUGH, AUD 100 [facility] 100, [place], [address], [facility] - [facility] 06/25/2024 10:45:55 4 SRT & Speech Recognition - 94876 completed TEA CARCAMONAUGH, AUD 100 [facility] [address], [place], [address], [facility] 06/25/2024 10:45:59 Imaging Results None recorded. Procedure Notes None recorded. Medical Equipment None Reported. Allergies Allergen ID Allergen Name Allergen Category Reaction Reaction Severity Criticality Documentation Date Start Date Code Code System Note Provider Name and Address Organization Details Recorded Time 097114 methotrex ate medicatio n other Not available Not available 02/27/2024 6851 RxNorm React ion: other react ion, Unkno wn; Not Available [facility] 4 01:26:29 Medications Name Sig Start Date [...] chewable tablet 2020 active Medicatio n ID: [id number] Br and Name: Aspirin Childrens Send Method: [...] mcg capsule 2020 active Medicatio n ID: [id number] Br and Name: Linzess S end Method: E-Prescri bed Subs Allowed: subs [place] [facility]ica [facility] icName: Linzess Not Available Not Available Not [...] ICD10 Code Diagnosis IMO Codes Diagnosis Note [id number] [facility], it[address] 100 [facility] [address] 07/15/2025 13:00:47 07/18/2025 09:00:58 Sensorineural hearing loss of bilateral ears 289735490 H90.3 Audiologic al evaluation results:Ri ght ear:Normal sloping to profound sensorineu ral hearing loss with poor word recognitio n.Left ear:Mild sloping to profound sensorineu ral hearing loss with poor word recognitio n. [id number] TEA WERNER, KAYLAN [place] 100 [facility], [address] 100 [facility] [place] [address] 08/05/2025 09:02:17 08/07/2025 10:20:28 Sensorineural hearing loss of bilateral ears 482581375 H90.3 Hearing Aid Orientatio n Manufactur er: Phonak Infinio 90RColor: sand beigeEarpi shayy: Power c-Pocket Social, length 1 Serial NumbersRig ht: [id number] eft: [id number] Warranty: 08/22/2028 Accessorie s: C Web Developer ELISE Real ear: Done with very good [...] Member ID Noriega Member ID Guarantor Name 08/05/2025 1 [place] [employer] Laurence Laurenbeth [id number] Laurence Laurenbeth 08/05/2025 2 [place] [facility] Laurence Laurenbeth [id number] Laurence Mohan OBGyn Episode No OBEpisode recorded.
--- OUTSIDE RECORDS SUMMARY | 2025-09-13 20:15 | XMS_ITS | Continuity of Care Document ---
Author Organization [place] - [facility] Address [address] [address] Care Team Providers Care Capping Machine Operator Name Role Phone MARYLIN HOWARD Primary [...] Sensorineu ral hearing loss of bilateral ears 708625630 Active 2014 Sensorineu ral HL, bilateral; Note: Date Diagnosed: 01/22/2015 3:59 PM (389.18) ; Start Date : 01/22/2015 Sensorine ural hearing loss, bilateral; Note: Date Diagnosed: 09/14/2015 3:58 PM (H90.3) KAYLAN ESTRADA [address], [address], [place] - [facility] 13:26:57 Problem Notes None recorded. Procedures Surgical History Date Name Laterality Status Provider Name and Address Organization Details Recorded Time Air & Speech Audio - 11529 & 41568 completed KAYLAN ESTRADA [address], [address], [place] - [facility] 07/03/2025 14:40:13 4 Air only Audio - 71612 completed TEA CARCAMONAUGH, AUD 100 [facility] 100, [place], [address], [facility] - [facility] 06/25/2024 10:45:55 4 SRT & Speech Recognition - 21265 completed TEA CARCAMONAUGH, AUD 100 [facility] 100, [place], [address], [facility] 06/25/2024 10:45:59 Imaging Results None recorded. Procedure Notes None recorded. Medical Equipment None Reported. Allergies Allergen ID Allergen Name Allergen Category Reaction Reaction Severity Criticality Documentation Date Start Date Code Code System Note Provider Name and Address Organization Details Recorded Time 972675 methotrex ate medicatio n other Not available Not available 02/27/2024 6851 RxNorm React ion: other react ion, Unkno wn; Not Available [facility] 4 01:26:29 Medications Name Sig Start Date [...] chewable tablet 2020 active Medicatio n ID: [id number] Br and Name: Aspirin Childrens Send Method: E-Prescri bed Subs Allowed: subs BRENT [facility]ica [facility] icName: Aspirin Childrens Not Available Not Available [...] mcg capsule 2020 active Medicatio n ID: [id number] Br and Name: Linzess S end Method: E-Prescri bed Subs Allowed: subs [place] [facility] icName: Linzess Not Available Not Available Not [...] ICD10 Code Diagnosis IMO Codes Diagnosis Note [id number] KYALAN ESTRADA [place] 100 [facility], [address] 100 [place] [address] 08/05/2025 09:02:17 08/07/2025 10:20:28 Sensorineural hearing loss of bilateral ears 727925585 H90.3 Hearing Aid Orientatio n Manufactur er: Phonak Infinio 90RColor: sand beigeEarpi shayy: Power c-shells, length 1 Serial NumbersRig ht: [id number] eft: [id number] Warranty: 08/22/2028 Accessorie s: Professor Of Engineering ELISE Real ear: Done with very good success with SR pushed out Reviewed:U sing new chargerCle aning and wax guards is the samepaired to phone Follow up 3 weeks.Patricia ent knows to call with any major problems.* PT did sign P&S- did not copy it [id number] TEA WERNER, KAYLAN [place] 100 [facility],Prasad [address] [place] [address] 08/26/2025 09:28:22 08/29/2025 00:11:26 Sensorineural hearing loss of bilateral ears 646210280 H90.3 Hearing Aid Orientatio n Manufactur er: Phonak Infinio 90RColor: sand beigeEarpi shayy: Power c-shells, length 1 Serial NumbersRig ht: [id number] eft: [id number] Warranty: 08/22/2028 Accessorie s: Professor Of Engineering ELISE Real ear: Done with very good [...] ID Guarantor Name 08/26/2025 1 [place] [employer] Laurence Mohan [id number] Laurence Mohan 08/26/2025 2 [place] Laurence Mohan [id number] Laurence Mohan OBGyn Episode No OBEpisode recorded.
[2025-09-13 20:35] LABS: Hematocrit 28.0 % (37.0-47.0); Hemoglobin 9.2 g/dl (12.0-16.0); Imm Gran Abs Auto 0.06 X10*3/uL (0.00-0.03); Imm Gran Pct Auto 0.6 % (0.0-0.4); Lymphocytes Absolute Auto 0.5 X10*3/uL (1.2-4.9); Mean Corpuscular HGB Conc 32.9 g/dl (31.0-35.0); Mean Corpuscular Hemoglobin 28.4 pg (27.0-33.0); Mean Corpuscular Volume 86.4 fL (80.0-98.0); NRBC Abs Auto 0.000 X10*3/uL (0.0-0.012); NRBC Pct Auto 0.0 /100WBC (0.0-0.2); Platelet Count 579 X10*3/uL (160-400); Red Blood Count 3.24 X10*6/uL (4.20-5.50); White Blood Count 10.4 X10*3/uL (4.8-10.8)
--- NOTE | 2025-09-13 21:44 | ED.NEUROSD ---
HPI - Neuro Symptoms/Deficit General Chief Complaint: Neuro Symptoms/Deficit Stated Complaint: Confused, not feeling like herself x4 hrs Time Seen by Provider: 09/13/25 19:14 History of Present Illness ED Provider: sharon HPI Narrative: 84-year-old female who presents with friends. She said about 5:30 p.m. she was speaking with someone who came to visit her and felt that she had either wordfinding difficulties or was speaking inappropriate words briefly. Unsure how long this lasted. Sounds like it was just a few minutes. A friend was with her corroborated this where she denied any focal deficits but felt off or strange for the remainder of the afternoon. Subtle headache in the morning, no head trauma recently, otherwise in her normal state of health. Related Data Home Medications ?Medication ?Instructions ?Recorded ?Confirmed acetaminophen 500 mg tablet 1,000 mg PO Q6H PRN Pain 09/14/25 09/14/25 diltiazem HCl 240 mg 240 mg PO DAILY 09/14/25 09/14/25 tablet,extended release 24 hr famotidine 20 mg tablet 20 mg PO DAILY 09/14/25 09/14/25 hydroxychloroquine 200 mg tablet 200 mg PO DAILY 09/14/25 09/14/25 levothyroxine 50 mcg tablet 50 mcg PO DAILY 09/14/25 09/14/25 linaclotide 145 mcg capsule 145 mcg PO DAILY 09/14/25 09/14/25 (Linzess) losartan 25 mg tablet 25 mg PO DAILY 09/14/25 09/14/25 methenamine hippurate 1 gram tablet 1 g PO DAILY 09/14/25 09/14/25 mirabegron 25 mg tablet,extended 25 mg PO DAILY 09/14/25 09/14/25 release 24 hr (Myrbetriq) multivitamin 1 tab PO DAILY 09/14/25 09/14/25 tofacitinib 5 mg tablet (Xeljanz) 5 mg PO BID 09/14/25 09/14/25 Allergies Allergy/AdvReac Type Severity Reaction Status Date / Time methotrexate (METHOTREXATE) Allergy Severe DIFFICULTY Verified 09/13/25 18:35 BREATHING PMFSH Past Medical History Medical History (Updated 09/14/25 @ 06:35 by Sean Vasquez MD) GERD (gastroesophageal reflux disease) Neurogenic bladder Rheumatoid arthritis Hypothyroidism Essential hypertension Social History Social History (System 01/27/25 @ 11:50 by Avis Berg) Household Members: None Housing: Apartment Housing Other:: [facility] housing Do you presently have visiting nurse or other home services: No Patient Tobacco Use Status: Never used Tobacco service: No Physical Exam Exam: Exam: EXAM: Gen: Alert, awake, well appearing, well hydrated. Head: Atraumatic Eyes: Anicteric, Normal conjunctiva. ENT: Moist mucosa, no pallor. Neck: Supple. Respiratory: Breathing comfortably, No distress.Clear to auscultation bilaterally, symmetric chest expansion, No wheeze, rales, ronchi. Cardiovascular: Regular rate and rhythm. No murmurs or rub. Well perfused periphery, warm extremities. No edema. Abdominal: Soft, no objective distension. No palpable masses or obvious organomegaly. No focal tenderness, no guarding, no rebound tenderness or other peritoneal findings. : No flank tenderness. Neuro: Alert. Gross movement of all extremities intact. 5 and 5 upper and lower strength bilaterally with intact sensation to light touch throughout. Face symmetric, pupils 2-3mm symmetric and reactive. Normal extraocular movements. Cranial nerves 2-12 normal. Normal cerebellar testing including finger to nose, rapid alternating hand movements, no limitaxia. Vital signs: See flowsheet Vital Signs: Vital Signs: Last Vital Signs Temp 99.3 F 09/14/25 19:19 Pulse 93 09/14/25 19:19 Resp 16 09/14/25 19:19 BP 160/70 H 09/14/25 19:54 Pulse Ox 96 09/14/25 19:19 O2 Del Method Room Air 09/14/25 19:19 BMI result Body Mass Index 21.2 Medications Administered Generic Name Dose Route Start Last Admin Trade Name Freq PRN Reason Stop Dose Admin Aspirin 81 mg 09/14/25 09:00 09/14/25 08:33 Aspirin Enteric Coated 81 Mg Tablet.Dr PO 81 mg DAILY JOSEFINA Administration Atorvastatin Calcium 80 mg 09/14/25 09:00 09/14/25 08:33 Atorvastatin Calcium 80 Mg Tablet PO 80 mg DAILY JOSEFINA Administration Calcium Carbonate 750 mg 09/13/25 23:21 09/14/25 20:12 Calcium Carbonate 750 Mg Tab.Chew PO 750 mg Q4H PRN Administration Heartburn Enoxaparin Sodium 40 mg 09/14/25 09:00 09/14/25 08:33 Enoxaparin Sodium 40 Mg/0.4 Ml Syringe SUBCUT 40 mg Q24H JOSEFINA Administration Ceftriaxone Sodium 1 gm/ 50 mls @ 100 mls/hr 09/14/25 07:00 09/14/25 09:14 Sodium Chloride IV Infused Q24H JOSEFINA Infusion Discontinued Medications Generic Name Dose Route Start Last Admin Trade Name Monica PRN Reason Stop Dose Admin Aspirin 325 mg 09/13/25 22:13 09/13/25 22:26 Aspirin 325 Mg Tablet PO 09/13/25 22:14 325 mg ONCE ONE Administration Iohexol 75 ml 09/14/25 01:19 09/14/25 01:20 Iohexol 350 Mg/Ml 100 Ml Infus..Btl IV 09/14/25 01:20 75 ml ONCE ONE Administration Medical Decision Making Differential Diagnosis Differential Diagnoses: The differential diagnosis associated with the presentation includes TIA, Encephalopathy Metabolic derangement, , UTI, Consult Healthcare Provider Management of the patient was discussed with: Hospitalist Lab Data MDM Lab Attestation statement: I reviewed the patient's lab results. 09/14/25 09:37 09/14/25 09:37 Labs: Lab Results 09/13/25 09/13/25 Range/Units 19:20 19:21 WBC 10.4 (4.8-10.8) X10*3/uL RBC 3.24 L (4.20-5.50) X10*6/uL Hgb 9.2 L (12.0-16.0) g/dl Hct 28.0 L (37.0-47.0) % MCV 86.4 (80.0-98.0) fL MCH 28.4 (27.0-33.0) pg MCHC 32.9 (31.0-35.0) g/dl RDW 15.0 (11.0-16.0) % Plt Count 579 H (160-400) X10*3/uL MPV 8.6 L (9.4-12.3) fL Immature Gran % (Auto) 0.6 H (0.0-0.4) % Neut % (Auto) 84.8 H (45-73) % Lymph % (Auto) 4.5 L (20-40) % [place] % (Auto) 9.8 (2-11) % Eos % (Auto) 0.1 (0-4) % Baso % (Auto) 0.2 (0-2) % Lymph # (Auto) 0.5 L (1.2-4.9) X10*3/uL [place] # (Auto) 1.0 (0.1-1.2) X10*3/uL Eos # (Auto) 0.0 (0.0-0.4) X10*3/uL Baso # (Auto) 0.0 (0.0-0.2) X10*3/uL Abs Immat Gran (auto) 0.06 H (0.00-0.03) X10*3/uL Absolute Neuts (auto) 8.8 H (2.0-8.3) x10*3/uL Absolute Nucleated RBC 0.000 (0.0-0.012) X10*3/uL Nucleated RBC % (auto) 0.0 (0.0-0.2) /100WBC Sodium 136 (135-145) mmol/L Potassium 3.7 (3.3-5.1) mmol/L Chloride 102 (96-108) mmol/L Carbon Dioxide 23 (22-29) mmol/L Anion Gap 15 (12-20) BUN 22 H (9-16) mg/dL Creatinine 0.89 (0.5-1.4) mg/dL Estim Creat Clear Calc 35.9 Estimated GFR > 60 Random Glucose 111 (60-115) mg/dL Calcium 9.1 D (8.4-10.2) mg/dL Magnesium 1.7 (1.6-2.6) mg/dL Total Bilirubin 0.3 (0.0-1.0) mg/dL AST 23 (5-31) U/L ALT 12 (0-31) U/L Alkaline Phosphatase 86 (39-117) U/L Troponin I High Sens 13.2 (<3.5-17.0) ng/L Total Protein 7.3 (6.5-8.0) g/dL Albumin 4.4 (3.5-5.0) g/dL COVID-19 ([facility]) Negative (Negative) COVID-19 Clin Com See Note Influenza Type A ([place]) Negative (Negative) Influenza Type B ([place]) Negative (Negative) Influenza A & B Note See Note Independent Interpretation I performed an independent interpretation of an: EKG (Sinus rhythm, no ischemia. ) Radiology Impression Discussion of test interpretation with radiology: I have reviewed the radiologist's reading. Independent Historian Clinical information obtained from an independent historian. History obtained from or confirmed by: Friend NIH Stroke Scale Internal: Initial- Upon Arrival Level of Consciousness: Alert Level of Consciousness Questions: Answers both questions correctly Level of Consciousness Commands: Performs both tasks correctly Best Gaze: Normal Visual: No visual loss Facial Palsy: Normal Motor Arm (Right): No drift Motor Arm (Left): No drift Motor Leg (Right): No drift Motor Leg (Left): No drift Limb Ataxia: Absent Sensory: Normal Best Language: No aphasia Dysarthia: Normal Extinction and Inattention: No abnormality Score: 0 Discharge Plan Discharge Clinical Impression: Expressive aphasia Patient Disposition: Admitted As Inpatient Interventions: Admission Worksheet (ED) Last Done: 09/14/25 05:14 Discharge Date/Time: 09/14/25 06:01
[2025-09-13 22:24] VITALS: BP 163/70; PULSE 79; RESP 16; TEMP 36.8; O2SAT 98
[2025-09-13 22:37] LABS: Appearance Urine Cloudy; Glucose Urine UA Negative (Negative); PH 6.0 (5.0-9.0); Specific Gravity - Urine 1.010 (1.005-1.025); UMIC TRIGGER UACC YES
--- NOTE | 2025-09-13 22:38 | PC.NURSE ---
Pt transferred to hospital bed, IV placed, bed alarm on, IV placed for admission.
[2025-09-13 22:52] LABS: UACC Culture Trigger YES
--- NOTE | 2025-09-13 23:17 | PC.NURSE ---
Assumed care of this Pt at 2300.
--- NOTE | 2025-09-13 23:25 | P.HPHOSP_ITS ---
History of Present Illness Date of Service: 09/13/25 Attending physician on admission: Sean Vasquez Chief Complaint: Speech difficulty Laurence Mohan is 84 years old woman with past medical history significant for essential hypertension who presents to the emergency department complaining of sudden onset speech difficulty that started today around 16:00. She also reported some mild headache. She denied focal weakness or numbness, acute visual disturbances, dizziness, nausea, vomiting, loss of consciousness, palpitations, chest pain or shortness on breath. She did not report any acute gastrointestinal or genitourinary symptoms. She did not report any toxic habits. She takes aspirin daily. Denied history of strokes, hyperlipidemia and diabetes. In the ED, she was found to have stable vital signs. Last blood pressure is 163/70. Blood workup showed no leukocytosis. Hemoglobin is 9.1 and platelets 579. There are no electrolyte imbalances. BUN is 22 and creatinine 0.89. LFTs are normal. Troponin is 13.2. Urinalysis showed blood 1+, leukocyte steroids through + and WBC more than 50; bacteria 3+. Viral testing is negative for influenza COVID-[address] scan showed no acute findings. ECG showed normal sinus rhythm, poor quality. ED tx: Aspirin 325 mg po Review of Systems 2 Review of Systems: All 12 systems were reviewed and normal except as noted in HPI. [facility] Medical History (Updated 09/13/25 @ 23:49 by Sean Vasquez MD) GERD (gastroesophageal reflux disease) Neurogenic bladder Rheumatoid arthritis Hypothyroidism Essential hypertension Social History (System 01/27/25 @ 11:50 by Avis Berg) Patient Tobacco Use Status: Never used Tobacco Smoked in Last 30 Days: No Use of substances other than those prescribed or required for medical reasons: No Advance Directives: No Advance Directives Information Provided: No Do you have a plan to hurt others: No Plan Nutrition Risks: No Nutritional Risk Meds Allergies Allergy/AdvReac Type Severity Reaction Status Date / Time methotrexate (METHOTREXATE) Allergy Severe DIFFICULTY Verified 09/13/25 18:35 BREATHING Physical Exam 2 Vital Signs and Narrative: Vital Signs: Last Vital Signs Temp 98.3 F 09/13/25 22:24 Pulse 79 09/13/25 22:24 Resp 16 09/13/25 22:24 BP 163/70 H 09/13/25 22:24 Pulse Ox 98 09/13/25 22:24 O2 Del Method Room Air 09/13/25 22:24 BMI result Body Mass Index 21.2 General: Alert, oriented, in no acute distress. Well nourished and cooperative. Afebrile. HEENT: Head normocephalic, atraumatic. PERRLA, EOMI. Sclerae anicteric, conjunctiva clear. Oropharynx without erythema or exudate. Mucous membranes moist. Neck: Supple, no lymphadenopathy, or JVD. Heart: RRR, no murmurs, rubs or gallops. Lungs: Clear to auscultation bilaterally. No wheezes, rales, or rhonchi. Normal respiratory effort. Abdomen: Soft, non tenderness, nondistended, normoactive bowel sounds. No hepatosplenomegaly, masses or masses. Extremities: No calf tenderness bilaterally, no swelling Musculoskeletal: Full range of motion. No joint swelling, deformity, or tenderness. Normal muscle tone and strength. Skin: Warm/Dry. No pallor. No jaundice. Neurologic: Alert & oriented x4. CN III-XII grossly intact. Moving all extremities spontaneously. Normal speech. Psychological: Normal mood and affect. Thought process coherent. Results Labs 09/13/25 19:20 09/13/25 19:20 Labs: Laboratory Results - last 24 hr 09/13/25 09/13/25 09/13/25 19:20 19:21 22:27 MCV 86.4 MCH 28.4 MCHC 32.9 RDW 15.0 Plt Count 579 H MPV 8.6 L Immature Gran % (Auto) 0.6 H Neut % (Auto) 84.8 H Lymph % (Auto) 4.5 L [place] % (Auto) 9.8 Eos % (Auto) 0.1 Baso % (Auto) 0.2 Lymph # (Auto) 0.5 L [place] # (Auto) 1.0 Eos # (Auto) 0.0 Baso # (Auto) 0.0 Abs Immat Gran (auto) 0.06 H Absolute Neuts (auto) 8.8 H Absolute Nucleated RBC 0.000 Nucleated RBC % (auto) 0.0 Anion Gap 15 Estim Creat Clear Calc 35.9 Estimated GFR > 60 Random Glucose 111 Calcium 9.1 D Magnesium 1.7 Total Bilirubin 0.3 AST 23 ALT 12 Alkaline Phosphatase 86 Troponin I High Sens 13.2 Total Protein 7.3 Albumin 4.4 Urine Color Yellow Urine Appearance Cloudy Urine pH 6.0 Ur Specific [place] 1.010 Urine Protein Trace Urine Glucose (UA) Negative Urine Ketones Negative Urine Blood Small (1+) H Urine Nitrite Negative Ur Leukocyte Esterase Large (3+) H Urine RBC 0-2 Urine WBC >50 H Ur Squamous Epith Cells 0-2 Urine Bacteria 3+ Hyaline Casts 0-2 COVID-19 ([facility]) Negative COVID-19 Clin Com See Note Influenza Type A ([place]) Negative Influenza Type B ([place]) Negative Influenza A & B Note See Note Assessment and Plan (1) Expressive aphasia: Status: Acute (2) Essential hypertension: Status: Acute (3) Transient ischemic attack: Status: Acute Plan Laurence Mohan is 84 y/o woman who presents with: Transient ischemic attack/expressive aphasia; resolved. Telemetry to assess for arrhythmia such as AFib/a flutter. Neuro checks. Start high-intensity statin. Continue aspirin 81 mg p.o. daily. Check head and neck CTA and brain MRI to rule out large vessel occlusion and stroke, respectively. Obtain TTE. Recheck troponin and lipid panel. Neurology consult. Essential hypertension. Continue diltiazem and losartan. Hypothyroidism. Continue levothyroxine. Rheumatoid arthritis. Continue hydroxychloroquine and Xeljanz. Neurogenic bladder. Continue Myrbetriq. GERD. Continue famotidine. Code status: Full DVT prophylaxis: Lovenox med rec pending Patient will need hospitalization for at least 2 midnights for TIA evaluation and treatment; she will need close monitoring of neuro status; further investigation with head and neck CTA and brain MRI as well as evaluation by specialist. Quality Stroke Does the patient have a stroke diagnosis?: Yes Reason for No Anti-thrombotic by Day Two: N/A - Med Ordered VTE Prior VTE?: No VTE Risk Level:: Medical - moderate - high VTE Device Contraindication: Treatment Not Indicated VTE Drug Contraindication: N/A - Med Ordered
[2025-09-14] VITALS (10 sets, daily range): BP systolic 152–182; BP diastolic 67–86; PULSE 71–95; RESP 16–20; TEMP 36.8–37.4; O2SAT 94–97; BMI 19.4
--- NOTE | 2025-09-14 | EEG_ITS ---
History: H/O GERD, neurogenic bladder, rheumatoid arthritis, hypothyroidism, essential htn - yesterday pt had a 20 minute episode of difficulty speaking- no LOC, no incontinence with event- pt was aware of event- MRI of brain did not reveal any acute abnormality Medication:Tylenol, asa, atorvastatin calcium, ceftriaxone, magnesium, melatonin, ondansetron. mirabegron, losartan, levothyroxine, famotidine, diltiazem Technical description: Photic stimulation: completed Hyperventilation: omitted Behavioral state: pleasant, able to answer questions correctly with no deficit noted in speech State of Consciousness: awake Skull defect:no Sedation:no Handedness: left Duration of study:26 min 11 sec Last Meal:09/15/2025 1:00:00 PM Time / date of last symptom:09/14/2025 Description: This is a 16 channel EEG with an EKG lead. Patient is reported awake during the tracing. Background EEG rhythm is about 10 hertz 5-50 microvolt posteriorly lower amplitude fast anteriorly. Frequently an intermittently left hemispheric temporal area slowing with some disorganized rhythm was noted. No definite sharp waves or spikes were seen. Photic stimulation did not produce any significant driving. Hyperventilation was not performed. Cardiac lead did not reveal any significant abnormality. 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 MTDD
[2025-09-14] MEDS: iohexoL 350 MG/ML 100 ML INFUS..BTL 75 ML IV (01:20)
--- NOTE | 2025-09-14 05:14 | HO.NURTONUR ---
Pt came in from home complaining of sudden onset speech difficulty that started yesterday around 16:00. She also reported some mild headache. Head CT scan showed no acute findings. ECG normal sinus rhythm, given Aspirin 325 mg po. Plan for Telemetry to assess for arrhythmia such as AFib/a flutter. Neuro checks. Start high-intensity statin. Continue aspirin 81 mg p.o. daily. and brain MRI. Pt A&Ox3, EKLUTNA, ambulates independently, neuros intact. Passed nursing bedside swallow eval. 22G to left forearm, 20G to R AC. Pt in hospital bed.
--- NOTE | 2025-09-14 08:19 | MHC.CM.PN ---
Addendum entered by Gwendolyn Lester 09/14/25 08:25: Patient has a Homemaker 2 times/month. Original Note: CM met with Patient and addressed IMM with her. Patient lives alone in an apartment and uses a walker PRN. Home/self care is Patient's goal and CM has initiated and will follow for dc planning. PCP is Dr. Radha You and Miri/Joan is the HCP([phone]),who will likely transport at dc.
--- NOTE | 2025-09-14 08:31 | PHA.MEDREC ---
Pharmacy Consult ? Medication Reconciliation Pharmacy has completed the medication reconciliation. Spoke with pt, very pleasant, and good historian.
[2025-09-14] MEDS: Aspirin Enteric Coated 81 MG TABLET.DR PO (08:33)
--- NOTE | 2025-09-14 08:49 | P.PNIM_ITS ---
Subjective Subjective Date of Service: 09/14/25 Interval History: Patient's friend at the bedside-no further neurological concerns MRI no acute changes EEG to be done tomorrow Review of Systems Review of Systems: Yes all other systems are reviewed and are negative Physical Exam 2 Exam: Exam: General: AOx3, no acute distress Resp: CTA bilaterally CVS: S1, S2, RRR GI: +BS, NT, no distention Neuro: Cranial nerves II-XII grossly intact bilaterally. Motor grossly intact bilaterally Vital Signs: Vital Signs: Last Vital Signs Temp 99.0 F 09/14/25 07:11 Pulse 74 09/14/25 07:11 Resp 18 09/14/25 07:11 BP 162/80 H 09/14/25 08:41 Pulse Ox 95 09/14/25 07:11 O2 Del Method Room Air 09/14/25 07:11 BMI result Body Mass Index 19.4 Objective Data Active Medications Acetaminophen (Acetaminophen 325 Mg Tablet) 650 mg PO Q6H PRN PRN Reason: Pain, Mild 1-3,fever,headache Aspirin (Aspirin Enteric Coated 81 Mg Tablet.) 81 mg PO DAILY [facility] Last Admin: 09/14/25 08:33 Dose: 81 mg Documented By: MAGDALENA Atorvastatin Calcium (Atorvastatin Calcium 80 Mg Tablet) 80 mg PO DAILY [facility] Last Admin: 09/14/25 08:33 Dose: 80 mg Documented By: MAGDALENA Calcium Carbonate (Calcium Carbonate 750 Mg Tab.Chew) 750 mg PO Q4H PRN PRN Reason: Heartburn Enoxaparin Sodium (Enoxaparin Sodium 40 Mg/0.4 Ml Syringe) 40 mg SUBCUT Q24H [facility] Last Admin: 09/14/25 08:33 Dose: 40 mg Documented By: MAGDALENA Ceftriaxone Sodium 1 gm/ (Sodium Chloride) 50 mls @ 100 mls/hr IV Q24H [facility] Last Admin: 09/14/25 08:33 Dose: 100 mls/hr Documented By: MAGDALENA Magnesium Hydroxide (Milk Of Magnesia 30 Ml Oral.Susp) 30 ml PO DAILY PRN PRN Reason: Constipation Melatonin (Melatonin 3 Mg Tablet) 6 mg PO BEDTIME PRN PRN Reason: Insomnia Ondansetron HCl (Ondansetron Hcl 4 Mg/2 Ml Vial) 4 mg IVPUSH Q8H PRN PRN Reason: Nausea and Vomiting Labs 09/14/25 09:37 09/14/25 09:37 Labs: Laboratory Results - last 24 hr 09/13/25 09/13/25 09/13/25 19:20 19:21 22:27 MCV 86.4 MCH 28.4 MCHC 32.9 RDW 15.0 Plt Count 579 H MPV 8.6 L Immature Gran % (Auto) 0.6 H Neut % (Auto) 84.8 H Lymph % (Auto) 4.5 L [place] % (Auto) 9.8 Eos % (Auto) 0.1 Baso % (Auto) 0.2 Lymph # (Auto) 0.5 L [place] # (Auto) 1.0 Eos # (Auto) 0.0 Baso # (Auto) 0.0 Abs Immat Gran (auto) 0.06 H Absolute Neuts (auto) 8.8 H Absolute Nucleated RBC 0.000 Nucleated RBC % (auto) 0.0 Anion Gap 15 Estim Creat Clear Calc 35.9 Estimated GFR > 60 Random Glucose 111 Calcium 9.1 D Magnesium 1.7 Total Bilirubin 0.3 AST 23 ALT 12 Alkaline Phosphatase 86 Troponin I High Sens 13.2 Total Protein 7.3 Albumin 4.4 Urine Color Yellow Urine Appearance Cloudy Urine pH 6.[address] 1.010 Urine Protein Trace Urine Glucose (UA) Negative Urine Ketones Negative Urine Blood Small (1+) H Urine Nitrite Negative Ur Leukocyte Esterase Large (3+) H Urine RBC 0-2 Urine WBC >50 H Ur Squamous Epith Cells 0-2 Urine Bacteria 3+ Hyaline Casts 0-2 COVID-19 ([facility]) Negative COVID-19 Clin Com See Note Influenza Type A ([place]) Negative Influenza Type B ([place]) Negative Influenza A & B Note See Note Assessment and Plan (1) Expressive aphasia: Status: Acute Assessment and Plan: Patient is a very pleasant 84-year-old female with PMH notable for HTN, acute on chronic recurrent UTIs who was recently prescribed Myrbetriq by her urologist. She developed a brief transient self-limited expressive aphasia lasting 20 minutes on 09/13/2025 and was being admitted for stroke workup. Expressive aphasia Likely TIA Aspirin statin TTE Imaging CT, CTA, MRI unremarkable for acute changes PT eval in the a.m. Essential hypertension Continue home meds Acute on chronic UTI- Neurogenic bladder Currently broad-spectrum antibiotics Bladder spasms which could be another reason for her discomfort or intermittent bladder outlet obstruction Urine culture and sensitivity pending which we will tailor the antibiotics to we do not have prior records sensitivities to tailor the antibiotics Hypothyroidism continue home levothyroxine GERD-continue antacid Rheumatoid arthritis-continue home meds Chronic constipation continue bowel regimen DVT prophylaxis with Lovenox If EEG normal, she will be discharged tomorrow after PT eval and outpatient neuro follow-up This note is constructed using voice recognition software. While every effort has been made to ensure accuracy, track watchman errors may have been included. Quality Stroke Does the patient have a stroke diagnosis?: Yes Reason for No Anti-thrombotic by Day Two: N/A - Med Ordered VTE Prior VTE?: No VTE Risk Level:: Medical - moderate - high VTE Device Contraindication: Treatment Not Indicated VTE Drug Contraindication: N/A - Med Ordered
[2025-09-14 10:11] LABS: MANUAL DIFF FLAG NO
[2025-09-14 10:17] LABS: Hematocrit 29.3 % (37.0-47.0); Hemoglobin 9.6 g/dl (12.0-16.0); Imm Gran Abs Auto 0.05 X10*3/uL (0.00-0.03); Imm Gran Pct Auto 0.5 % (0.0-0.4); Lymphocytes Absolute Auto 0.2 X10*3/uL (1.2-4.9); Mean Corpuscular HGB Conc 32.8 g/dl (31.0-35.0); Mean Corpuscular Hemoglobin 28.0 pg (27.0-33.0); Mean Corpuscular Volume 85.4 fL (80.0-98.0); NRBC Abs Auto 0.000 X10*3/uL (0.0-0.012); NRBC Pct Auto 0.0 /100WBC (0.0-0.2); Platelet Count 605 X10*3/uL (160-400); Red Blood Count 3.43 X10*6/uL (4.20-5.50); White Blood Count 10.5 X10*3/uL (4.8-10.8)
[2025-09-14 10:35] LABS: Anion Gap 15 (12-20); Blood Urea Nitrogen 14 mg/dL (9-16); Calcium 9.5 mg/dL (8.4-10.2); Carbon Dioxide 25 mmol/L (22-29); Chloride 100 mmol/L (96-108); Creatinine Clr Calc Pharmacy 45.6; Estimated Glomerular Filt Rate > 60; Potassium 3.7 mmol/L (3.3-5.1); Sodium 136 mmol/L (135-145)
[2025-09-14 10:36] LABS: Cholesterol 200 mg/dL (<200); Cholesterol 205 mg/dL (<200); HDL Cholesterol 94 mg/dL (>40); HDL Cholesterol 96 mg/dL (>40); Triglycerides 25 mg/dL (<150); Triglycerides 27 mg/dL (<150)
[2025-09-14 10:43] LABS: Troponin-I High Sensitivity 14.2 ng/L (<3.5-17.0)
--- NOTE | 2025-09-14 11:34 | MHC.SLORD ---
Speech Language Pathology Order Status: [employer] called in this a.m. per nursing. RN documented patient passed RN swallow screen 09/13 at 23:43, noted again in Nurse to Nurse report 5:14. RN this a.m. reported that patient has been swallowing fine, but consult placed d/t stroke protocol. V[employer]ER consulted w/ stroke RN, Laura Giraldo. Per Laura, swallow eval not needed, as she passed her RN screen and nursing is reporting no issues swallowing, and order to be cx'ed. Please re-refer with any changes or further concern.
[2025-09-14 11:53] LABS: Reflex LDLD? No
--- NOTE | 2025-09-14 13:19 | P.CNNE_ITS ---
History of Present Illness Data of Consult Service Date: 09/14/25 Primary Care Provider: Unknown Physician HPI Reason for consult: Episode of difficulty speaking 84 years old woman with hypertension and chronic urinary urgency and frequency for which she was prescribed regular dose of antibiotic and recently was prescribed Myrbetriq. She took this medicine in the morning and then in afternoon and then at night but it did not make much difference to her urinary problem. She was not having any burning urination fever or chills. She was with other people at her place of residence when something happened and she had difficulty speaking or confusion. It was noted by other people and she said that it lasted for about 20 minutes. She had mild headache. There was no local or noted weakness. She never had similar episode. Review of Systems 2 Review of Systems: General: No significant recent issues Genitourinary: Chronic frequent urination and tendency for UTI Neurological: No prior episodes of confusion or difficulty speaking or any focal weakness Sleep: No significant issues Psychiatric: No significant issues Gastrointestinal: No significant issue Respiratory: No significant issues Cardiovascular: No significant issue Skin: No significant issues Musculoskeletal: No new issues [facility] Past Medical History Medical History (Updated 09/14/25 @ 06:35 by Sean Vasquez MD) GERD (gastroesophageal reflux disease) Neurogenic bladder Rheumatoid arthritis Hypothyroidism Essential hypertension Social History Social History (System 01/27/25 @ 11:50 by Avis Berg) Household Members: None Housing: Apartment Housing Other:: [facility] housing Do you presently have visiting nurse or other home services: No Patient Tobacco Use Status: Never used Tobacco service: No Meds Allergies Allergy/AdvReac Type Severity Reaction Status Date / Time methotrexate (METHOTREXATE) Allergy Severe DIFFICULTY Verified 09/13/25 18:35 BREATHING Active Medications: Current Medications Acetaminophen (Acetaminophen 325 Mg Tablet) 650 mg PO Q6H PRN PRN Reason: Pain, Mild 1-3,fever,headache Aspirin (Aspirin Enteric Coated 81 Mg Tablet.) 81 mg PO DAILY [facility] Last Admin: 09/14/25 08:33 Dose: 81 mg Atorvastatin Calcium (Atorvastatin Calcium 80 Mg Tablet) 80 mg PO DAILY [facility] Last Admin: 09/14/25 08:33 Dose: 80 mg Calcium Carbonate (Calcium Carbonate 750 Mg Tab.Chew) 750 mg PO Q4H PRN PRN Reason: Heartburn Enoxaparin Sodium (Enoxaparin Sodium 40 Mg/0.4 Ml Syringe) 40 mg SUBCUT Q24H [facility] Last Admin: 09/14/25 08:33 Dose: 40 mg Ceftriaxone Sodium 1 gm/ (Sodium Chloride) 50 mls @ 100 mls/hr IV Q24H [facility] Last Infusion: 09/14/25 09:14 Dose: Infused Magnesium Hydroxide (Milk Of Magnesia 30 Ml Oral.Susp) 30 ml PO DAILY PRN PRN Reason: Constipation Melatonin (Melatonin 3 Mg Tablet) 6 mg PO BEDTIME PRN PRN Reason: Insomnia Ondansetron HCl (Ondansetron Hcl 4 Mg/2 Ml Vial) 4 mg IVPUSH Q8H PRN PRN Reason: Nausea and Vomiting Home Medications ?Medication ?Instructions ?Recorded ?Confirmed ?Last Taken ?Type acetaminophen 500 mg tablet 1,000 mg PO Q6H PRN Pain 1 11/14/24 09/14/25 Unknown History diltiazem HCl 240 mg 240 mg PO DAILY 09/14/2509/13/25 History tablet,extended release 24 hr famotidine 20 mg tablet 20 mg PO DAILY 09/14/2508/1809/13/25 History hydroxychloroquine 200 mg tablet 200 mg PO DAILY 09/1409/14/25 09/13/25 History levothyroxine 50 mcg tablet 50 mcg PO DAILY 09/14/25 1 11/14/24 09/13/25 History linaclotide 145 mcg capsule 145 mcg PO DAILY 09/14/25 09/14/25 09/13/25 History (Linzess) losartan 25 mg tablet 25 mg PO DAILY 09/14/2508/1809/13/25 History methenamine hippurate 1 gram tablet 1 g PO DAILY 09/1409/14/25 09/13/25 History mirabegron 25 mg tablet,extended 25 mg PO DAILY 09/14/25 09/13/25 History release 24 hr (Myrbetriq) multivitamin 1 tab PO DAILY 09/14/2508/1809/13/25 History tofacitinib 5 mg tablet (Xeljanz) 5 mg PO BID 09/14/25 09/14/25 09/13/25 History Physical Exam 2 Vital Signs: Vital Signs: Last Vital Signs Temp 98.2 F 09/14/25 11:00 Pulse 80 09/14/25 11:00 Resp 18 09/14/25 11:00 BP 160/76 H 09/14/25 11:00 Pulse Ox 97 09/14/25 11:00 O2 Del Method Room Air 09/14/25 11:00 BMI result Body Mass Index 19.4 Neuro: Other: Mental Status: Alert and oriented to person, place, and time. Normal attention. Normal spontaneous speech, fluency, and comprehension. No obvious issues with mood and memory. Affect is appropriate. Cranial Nerves: CN II: Visual barker full to confrontation, visual acuity intact. CN III, IV, : Pupils equal, round, reactive to light and accommodation. Extraocular movements are normal. CN V: Facial sensation is normal. CN VII: Facial movements symmetrical. CN VIII: Hearing intact to bedside conversation is normal. CN IX, X: Palate elevates symmetrically. CN XI: Shoulder shrug and head turn symmetrical. CN XII: Tongue midline without atrophy or fasciculations. Motor: No focal arm or leg weakness. Deep tendon reflexes are trace to absent with flexor plantars. No neglect. Extrapyramidal: Full facial expressions and blinking. No rigidity. Movements are appropriate with no tremor or abnormality. Speech: Normal; no dysarthria or tremor. Results Labs 09/14/25 09:37 09/14/25 09:37 Labs: Short CBC 09/13/25 09/14/25 Range/Units 19:20 09:37 WBC 10.4 10.5 (4.8-10.8) X10*3/uL Hgb 9.2 L 9.6 L (12.0-16.0) g/dl Hct 28.0 L 29.3 L (37.0-47.0) % Plt Count 579 H 605 H (160-400) X10*3/uL BMP 09/13/25 09/14/25 19:20 09:37 Sodium 136 136 Potassium 3.7 3.7 Chloride 102 100 Carbon Dioxide 23 25 BUN 22 H 14 Creatinine 0.89 0.67 Calcium 9.1 D 9.5 Liver Function 09/13/25 Range/Units 19:20 Total Bilirubin 0.3 (0.0-1.0) mg/dL AST 23 (5-31) U/L ALT 12 (0-31) U/L Alkaline Phosphatase 86 (39-117) U/L Albumin 4.4 (3.5-5.0) g/dL Urine 09/13/25 Range/Units 22:27 Urine Color Yellow Urine Appearance Cloudy Urine pH 6.0 (5.0-9.0) Ur Specific [place] 1.010 (1.005-1.025) Urine Protein Trace (Neg-Trace) mg/dL Urine Glucose (UA) Negative (Negative) mg/dL CT angiography head and neck with contrast. 3D Postprocessing. Comparison: CT/SR - CT HEAD/BRAIN WO IV CON - 09/13/25 20:[address]/SR - CT HEAD/BRAIN WO IV CON - 01/25/25 16:34 EDT Findings: Brain demonstrates diffuse cerebral atrophy with moderate burden of subcortical and periventricular white matter hypodensities. Perivascular spaces or small lacunar are present in the bilateral basal ganglia and left thalami. Midbrain, nehal, medulla, and cerebellum are normal. The petrous and cavernous internal carotid arteries are normal. Ophthalmic artery origins are normal. Mild atherosclerotic plaque in the cavernous and supraclinoid internal carotid arteries without high-grade stenosis. The right posterior communicating artery demonstrates atherosclerotic narrowing. The left posterior communicating artery demonstrates mild atherosclerotic narrowing. The A1 segments are codominant. There is a small anterior communicating artery. A2 segments are normal. The left middle cerebral artery is patent. No aneurysm, high-grade stenosis, or large vessel occlusion. The right MCA demonstrates mild atherosclerotic narrowing the M2 and M3 divisions are normal. No large vessel occlusion. Left vertebral artery is dominant. Right vertebral artery terminates predominantly as the right posterior inferior cerebellar artery. There is a small left posterior inferior cerebellar artery arising extradural early. Basilar is patent. Right V4 segment is hypoplastic distally. Anterior inferior and superior cerebellar arteries are normal. Posterior cerebral arteries demonstrate mild atherosclerotic disease without high-grade stenosis or occlusion. Dural venous sinuses are normal. Internal jugular veins are normal. Orbits are normal. Otomastoid spaces and paranasal sinuses are clear. The aortic arch demonstrates atherosclerotic calcification. There is a common origin of the left common and brachiocephalic. Moderate atherosclerotic plaque is present within the left subclavian proximal to the origin of the left vertebral artery. There is moderate stenosis at the origin of the left vertebral artery. There is no stenosis at the origin of the right vertebral artery. Vertebral arteries are left dominant. Osteophytes demonstrate moderate mass effect upon the right V2 segment. The left V3 segment demonstrates focal angulation and diffuse ectasia. Right V3 segment is patent. The left common carotid artery is patent. Left carotid bifurcation demonstrates significant atherosclerotic plaque measuring greater than 6 mm with plaque ulceration. There is 50% stenosis of the proximal left ICA. Distal left ICA is patent. The right common carotid artery is patent. There is calcified and atheromatous plaque at the right carotid bifurcation measuring 3 mm there is less than 50% stenosis of the right ICA distal right internal carotid artery is patent. Cervical spine demonstrates fusion of C5/C6/C7. Anterolisthesis of C3 on C4 and C4 on C5 contributing to moderate spinal canal stenosis at C4/5 and severe foraminal narrowing at C3/4 and C4/5. IMPRESSION: Atherosclerotic plaque at the carotid bifurcations with left ICA 50% stenosis by NASCET criteria. Significant and ulcerated plaque is present at the left carotid bifurcation. No significant right ICA stenosis. Moderate origin stenosis of the dominant left vertebral artery. No intracranial large vessel occlusion or aneurysm. MRI of brain did not reveal any acute abnormality. Assessment and Plan (1) Expressive aphasia: Status: Acute 84 years old woman with hypertension and associated chronic microvascular ischemic changes of brain and chronic frequent urination and tendency for UTI was prescribed Myrbeteric recently with a regular antibiotic. She was in usual state of health when she had an episode of difficulty speaking with mild headache and maybe also some confusion. Her investigations did not reveal any acute finding. She is already prone to UTI and that might be an explanation but in that case it may not clear in 20 minutes or so. My recommendation is to do an EEG to rule out seizure disorder Procedures Date of Service Date of Service: 09/14/25
[2025-09-15] VITALS (8 sets, daily range): BP systolic 135–182; BP diastolic 61–90; PULSE 79–98; RESP 16–18; TEMP 35.8–37.2; O2SAT 92–96
--- NOTE | 2025-09-15 07:00 | CA_ITS ---
Transthoracic Echocardiogram Patient (Last, First, Middle): Laurence Alvarado, Gender: F Date of : 1940 Age: 84 Procedure Date: 09/15/2025 Procedure Type: [place]ansthoracic [place] [facility] [place]: 157.48 cm Weight: 47.63 kg BSA: 1.45 m2 Heart Rate: bpm BP: 158 / 78 mmHg Senior Project Accountant: JACQUELIN Referring MD: Sean Vasquez MD Symptoms: TIA Study Quality: Fair ECG Rhythm: Sinus Conclusions: - The left ventricular systolic function is mildly decreased. The visually estimated ejection fraction is between 45-50%. - The basal inferior segment is akinetic. - No obvious valvular pathology seen on this study. Findings Procedure Information The study quality is limited by the patients inability to tolerate the test. Left Ventricle Normal left ventricular cavity size. There is mildly increased left ventricular wall thickness. The left ventricular systolic function is mildly decreased. The visually estimated ejection fraction is between 45-50%. There is mild global hypokinesis. Diastolic function is indeterminate on the basis of available data. Wall Motion Rest Echo Findings The basal inferior segment is akinetic. Right Ventricle Normal right ventricular cavity size and systolic function. Atria Both atria are normal in size. Aortic Valve There is a normal trileaflet aortic valve. There is no aortic valve stenosis. There is no aortic valve regurgitation. Mitral Valve There is mild anterior mitral leaflet thickening. There is mild mitral annular calcification. There is no mitral valve regurgitation. There is no mitral valve stenosis. Pulmonic Valve The pulmonic valve is likely normal. Tricuspid Valve There is trace tricuspid valve regurgitation. There is no evidence of pulmonary hypertension. Great Vessels The asc aorta is normal in size. Venous The inferior vena cava is normal in size and collapses greater than 50% with inspiration. Pericardium/Pleural There is no evidence of pericardial effusion. Prior Study Comparison No prior study available for comparison. Recommendations, Care & Conclusions No obvious valvular pathology seen on this study. Measurements 2D Linear Measurements IVSd: 1.09 0.6-0.9/0.6-1.0 cm LVIDd: 4.34 3.9-5.3/4.2-5.9 cm LVIDd Index: 2.99 2.4-3.2/2.2-3.1 cm/m2 LVIDs: 2.92 2.0-3.6 cm LVPWd: 1.06 0.7-1.1 cm LA Diam: 2.60 2.7-3.8/3.0-4.0 cm LAIDs Index: 1.79 1.5-2.3 cm/m2 LV Mass: 199.28 67-162/88-224 g LV Mass Index: 137.43 43-95/49-115 g/m2 LVOT Diam: 2.00 3.0+(-)1.3 cm Mitral Valve MV Pk E: 1.15 MV Decel Time: 116.00 E'Lateral: 8.86 E'Medial: 3.55 E/E' Med: 32.40 E/E' Lat: 13.00 PHT: 34.00 MVA PHT: 6.47 Decel Benzie: 9.93 Aortic Valve AoV Pk Tay: 1.09 AoV Mn Tay: 0.80 AoV VTI: 0.18 AoV Pk Grad: 5.00 Aov Mn Grad: 3.00 MIGUEL Cont.VTI: 2.73 LVOT LVOT Pk Tay: 0.80 LVOT Mn Tay: 0.52 LVOT VTI: 0.16 LVOT Pk Grad: 3.00 LVOT Mn Grad: 1.00 LVOT Diam: 2.00 LVOT Area: 3.14 Diastolic Function MV Pk E: 1.15 E'Medial: 3.55 E/E' Med: 32.40 E' Laterial: 8.86 E/E' Lat: 13.00 Right Ventricle TAPSE (mm): 14.40 TVS' Tay: 11.50 Tricuspid Valve TR Pk Tay: 2.31 TR Pk Grad: 21.00 RA Press: 3.00 RVSP: 24.00 Great Vessels Aorta Sinus of Valsalva: 2.78 2.0-3.5 cm Ao Asc: 3.10 2.1-3.4 cm Updated in Other Vendor System with Status of Final Bj Brown MD electronically signed on 09/15/2025 4:11:14 PM with status of Final
[2025-09-15] MEDS: dilTIAZem HCL CD 240 MG CAP.ER.DEG PO (10:34)
[2025-09-15] MEDS: Aspirin Enteric Coated 81 MG TABLET.DR PO (10:35)
--- NOTE | 2025-09-15 14:54 | MHC.CM.PN ---
PER MD ROUNDS, PLAN WAS EEG AND ECHO, THEN DC. CASE MANAGEMENT FOLLOWING
--- NOTE | 2025-09-15 16:02 | P.PNIM_ITS ---
Subjective Subjective Date of Service: 09/15/25 Interval History: EEG, TTE awaiting- limited due to catchup from holiday weekend Review of Systems Review of Systems: Yes all other systems are reviewed and are negative Physical Exam 2 Exam: Exam: General: AOx3, no acute distress Resp: CTA bilaterally CVS: S1, S2, RRR GI: +BS, NT, no distention Neuro: Cranial nerves II-XII grossly intact bilaterally. Motor grossly intact bilaterally Vital Signs: Vital Signs: Last Vital Signs Temp 99.0 F 09/14/25 07:11 Pulse 74 09/14/25 07:11 Resp 18 09/14/25 07:11 BP 162/80 H 09/14/25 08:41 Pulse Ox 95 09/14/25 07:11 O2 Del Method Room Air 09/14/25 07:11 BMI result Body Mass Index 19.4 Objective Data Active Medications Acetaminophen (Acetaminophen 325 Mg Tablet) 650 mg PO Q6H PRN PRN Reason: Pain, Mild 1-3,fever,headache Acetaminophen (Acetaminophen 325 Mg Tablet) 650 mg PO Q6H PRN PRN Reason: Pain Aspirin (Aspirin Enteric Coated 81 Mg Tablet.Dr) 81 mg PO DAILY FORMERLY [facility], [facility]1983 Last Admin: 09/15/25 10:35 Dose: 81 mg Documented By: AMARJIT Atorvastatin Calcium (Atorvastatin Calcium 80 Mg Tablet) 80 mg PO DAILY [facility]LY [facility], [facility]1983 Last Admin: 09/15/25 10:35 Dose: 80 mg Documented By: AMARJIT Calcium Carbonate (Calcium Carbonate 750 Mg Tab.Chew) 750 mg PO Q4H PRN PRN Reason: Heartburn Last Admin: 09/14/25 20:12 Dose: 750 mg Documented By: ERLINDA Diltiazem HCl (Diltiazem Hcl Cd 240 Mg Cap.Er.Deg) 240 mg PO DAILY FOR[facility]LY [facility], [facility]; Protocol Last Admin: 09/15/25 10:34 Dose: 240 mg Documented By: AMARJIT Enoxaparin Sodium (Enoxaparin Sodium 40 Mg/0.4 Ml Syringe) 40 mg SUBCUT Q24H FOR[facility], [facility]–1983 Last Admin: 09/15/25 10:33 Dose: 40 mg Documented By: AMARJIT Famotidine (Famotidine 20 Mg Tablet) 20 mg PO DAILY [facility], [facility]1983 Last Admin: 09/15/25 10:34 Dose: 20 mg Documented By: AMARJIT Hydralazine HCl (Hydralazine Hcl 25 Mg Tablet) 25 mg PO TID [facility], [facility]1983; Protocol Last Admin: 09/15/25 10:35 Dose: 25 mg Documented By: AMARJIT Hydroxychloroquine Sulfate (Hydroxychloroquine Sulfate 200 Mg Tablet) 200 mg PO DAILY [facility], [facility]1983 Last Admin: 09/15/25 10:34 Dose: 200 mg Documented By: AMARJIT Ceftriaxone Sodium 1 gm/ (Sodium Chloride) 50 mls @ 100 mls/hr IV Q24H [facility], [facility] Last Infusion: 09/15/25 07:35 Dose: Infused Documented By: ERLINDA Levothyroxine Sodium (Levothyroxine Sodium 50 Mcg Tablet) 50 mcg PO DAILY@0600 [facility], [facility] Last Admin: 09/15/25 06:37 Dose: 50 mcg Documented By: ERLINDA Losartan Potassium (Losartan Potassium 25 Mg Tablet) 25 mg PO DAILY [facility], [facility]; Protocol Last Admin: 09/15/25 10:34 Dose: 25 mg Documented By: AMARJIT Magnesium Hydroxide (Milk Of Magnesia 30 Ml Oral.Susp) 30 ml PO DAILY PRN PRN Reason: Constipation Melatonin (Melatonin 3 Mg Tablet) 6 mg PO BEDTIME PRN PRN Reason: Insomnia Methenamine Hippurate (Methenamine Hippurate 1 Gm Tablet) 1 gm PO DAILY [facility], [facility] Last Admin: 09/15/25 10:34 Dose: 1 gm Documented By: AMARJIT Mirabegron (Mirabegron 25 Mg Tab.Er.24h) 25 mg PO DAILY [facility], [facility]1983 Last Admin: 09/15/25 10:35 Dose: 25 mg Documented By: AMARJIT Multivitamins/Vitamin C (Multivitamin Tablet) 1 tab PO DAILY [facility], [facility] Last Admin: 09/15/25 10:34 Dose: 1 tab Documented By: AMARJIT Non-Formulary Medication (Linaclotide [Linzess]) 145 mcg PO DAILY [facility], [facility]1983 Non-Formulary Medication (Tofacitinib [Xeljanz]) 5 mg PO BID [facility], [facility] Ondansetron HCl (Ondansetron Hcl 4 Mg/2 Ml Vial) 4 mg IVPUSH Q8H PRN PRN Reason: Nausea and Vomiting Labs 09/14/25 09:37 09/14/25 09:37 Microbiology Microbiology Results: Microbiology 09/13/25 Unknown Urine Culture - Preliminary Urine clean catch - Clean Catch Midstream Culture in progress. Assessment and Plan (1) Expressive aphasia: Status: Acute Assessment and Plan: Patient is a very pleasant 84-year-old female with PMH notable for HTN, acute on chronic recurrent UTIs who was recently prescribed Myrbetriq by her urologist. She developed a brief transient self-limited expressive aphasia lasting 20 minutes on 09/13/2025 and was being admitted for stroke workup. Expressive aphasia Likely TIA Aspirin statin Imaging CT, CTA, MRI unremarkable for acute changes EEG, TTE awaiting- limited due to catchup from holiday weekend - once thats done , read and no PT eval in the a.m. Essential hypertension Continue home meds Acute on chronic UTI- Neurogenic bladder Currently broad-spectrum antibiotics Bladder spasms which could be another reason for her discomfort or intermittent bladder outlet obstruction Urine culture and sensitivity pending which we will tailor the antibiotics to we do not have prior records sensitivities to tailor the antibiotics Hypothyroidism continue home levothyroxine GERD-continue antacid Rheumatoid arthritis-continue home meds Chronic constipation continue bowel regimen DVT prophylaxis with Lovenox PT - home with services If EEG normal,TTE normal, she will be discharged tomorrow after PT eval and outpatient neuro follow-up This note is constructed using voice recognition software. While every effort has been made to ensure accuracy, school bus driver/custodian errors may have been included. Quality Stroke Does the patient have a stroke diagnosis?: Yes Reason for No Anti-thrombotic by Day Two: N/A - Med Ordered VTE Prior VTE?: No VTE Risk Level:: Medical - moderate - high VTE Device Contraindication: Treatment Not Indicated VTE Drug Contraindication: N/A - Med Ordered
[2025-09-16 03:03] VITALS: BP 131/73; PULSE 91; RESP 16; TEMP 36.5; O2SAT 93
[2025-09-16 07:23] VITALS: BP 147/69; PULSE 88; RESP 18; TEMP 37.2; O2SAT 96
[2025-09-16] MEDS: Aspirin Enteric Coated 81 MG TABLET.DR PO (07:51)
[2025-09-16] MEDS: dilTIAZem HCL CD 240 MG CAP.ER.DEG PO (07:52)
[2025-09-16 11:26] VITALS: BP 94/52; PULSE 82; RESP 18; TEMP 36.3; O2SAT 97
--- NOTE | 2025-09-16 12:39 | MHC.CM.PN ---
PT MEDICALLY CLEARED FOR DC HOME W/NEW [facility] FOR SN/PT, PT REPORTS SHE WILL CALL FOR A RIDE HOME ONCE DC PAPERWORK IS COMPLETE.
--- NOTE | 2025-09-16 13:20 | PC.NURSE ---
informed md of pt's low bp
--- NOTE | 2025-09-16 13:58 | P.DS_ITS ---
DS: Providers Provider Date of Service: 09/16/25 Date of admission: 09/13/25 21:48 Date of discharge: 09/16/25 Primary care physician: Radha Oates MD Consults: 09/13/25 23:21 Consult to Neurology Routine Consulting Provider: En May Reason for consultation: Expressive aphasia Has provider been notified: No DS: Diagnosis Discharge Diagnosis (1) Expressive aphasia: Status: Acute DS: Summary Hospital Course Hospital Course: Per H&P: Chief Complaint: Speech difficulty Laurence Mohan is 84 years old woman with past medical history significant for essential hypertension who presents to the emergency department complaining of sudden onset speech difficulty that started today around 16:00. She also reported some mild headache. She denied focal weakness or numbness, acute visual disturbances, dizziness, nausea, vomiting, loss of consciousness, palpitations, chest pain or shortness on breath. She did not report any acute gastrointestinal or genitourinary symptoms. She did not report any toxic habits. She takes aspirin daily. Denied history of strokes, hyperlipidemia and diabetes. In the ED, she was found to have stable vital signs. Last blood pressure is 163/70. Blood workup showed no leukocytosis. Hemoglobin is 9.1 and platelets 579. There are no electrolyte imbalances. BUN is 22 and creatinine 0.89. LFTs are normal. Troponin is 13.2. Urinalysis showed blood 1+, leukocyte steroids through + and WBC more than 50; bacteria 3+. Viral testing is negative for influenza COVID-[address] scan showed no acute findings. ECG showed normal sinus rhythm, poor quality. ED tx: Aspirin 325 mg po Hospital course: Expressive aphasia Newly diagnosed intermittent disorganized left temporal rhythm 84 years old woman with hypertension and associated chronic microvascular ischemic changes of brain and chronic frequent urination and tendency for UTI was prescribed Myrbeteric recently with a regular antibiotic. She was in usual state of health when she had an episode of difficulty speaking with mild headache and maybe also some confusion. Her investigations (Stroke workup unremarkable-CT head, CTA neck and MRI) did not reveal any acute finding. She is already prone to UTI and that might be an explanation but in that case it may not clear in 20 minutes or so. EEG was done on 09/15/2025 - EEG revealed intermittent disorganized left temporal rhythm. This would suggest underlying tendency for seizure disorder and neurologist's recommendation was to start her on levetiracetam 250 mg twice a day Essential hypertension Continue home meds Acute on chronic UTI Neurogenic bladder Currently broad-spectrum antibiotics Bladder spasms which could be another reason for her discomfort or intermittent bladder outlet obstruction Urine culture and sensitivity pending which we will tailor the antibiotics to we do not have prior records sensitivities to tailor the antibiotics Hypothyroidism continue home levothyroxine GERD-continue antacid Rheumatoid arthritis-continue home meds Chronic constipation continue bowel regimen DVT prophylaxis with Lovenox PT - home with services This note is constructed using voice recognition software. While every effort has been made to ensure accuracy, transcription specialist errors may have been included. Time spent discussing smoking cessation with patient: more than 10 minutes Status at Discharge Functional status at discharge: uses cane/walker Overall status at discharge: patient is progressing back to baseline Time Attestation Discharge Coordination Time (in mins): 65 Quality: Safe Use of Opioids Does Pt have an Active Cancer Diagnosis on the Problem List?: No Quality: Stroke Does the patient have a stroke diagnosis?: No Physical Exam Exam: Exam: General: AOx3, no acute distress Resp: CTA bilaterally CVS: S1, S2, RRR GI: +BS, NT, no distention Neuro: Cranial nerves II-XII grossly intact bilaterally. Motor grossly intact bilaterally Vital Signs: Vital Signs: Last Vital Signs Temp 97.4 F 09/16/25 11:26 Pulse 82 09/16/25 11:26 Resp 18 09/16/25 11:26 BP 94/52 L 09/16/25 11:26 Pulse Ox 97 09/16/25 11:26 O2 Del Method Room Air 09/16/25 11:26 BMI result Body Mass Index 19.4 DS: Data Data Completed and Pending Labs on day of discharge: Preliminary micro results at discharge 09/13/25 Unknown Urine Culture - Preliminary Urine clean catch - Clean Catch Midstream Gram negative juliana Discharge Plan Discharge Anticipated Discharge Date/Time: 09/16/25 13:45 Patient Disposition: Home Health Service Discharge Diagnosis: intermittent disorganized left temporal rhythm , tendency for seizure disorder Referrals: Sandi SALAZAR [Outside] - 3-5 Days Referral Note: [facility] Radha Oates MD [Primary Care Provider, Internal Medicine] - 1 Week En May MD [Physician, Neurology] - 1 Week Sukhdeep Clemente MD [Physician, Cardiology] - 1 Week Discharge Medications: New atorvastatin 80 mg Tablet 80 mg PO DAILY 30 Days Qty: 30 3RF aspirin 81 mg Tablet,Delayed Release (Dr/Ec) 81 mg PO DAILY 30 Days Qty: 30 0RF levetiracetam 250 mg Tablet 250 mg PO BID 30 Days Qty: 60 3RF Continued multivitamin Tablet 1 tab PO DAILY acetaminophen 500 mg Tablet 1,000 mg PO Q6H PRN (Reason: Pain) methenamine hippurate 1 gram tablet 1 g PO DAILY famotidine 20 mg tablet 20 mg PO DAILY levothyroxine 50 mcg tablet 50 mcg PO DAILY hydroxychloroquine 200 mg tablet 200 mg PO DAILY mirabegron [Myrbetriq] 25 mg tablet extended release 24 hr 25 mg PO DAILY Linzess 145 mcg capsule 145 mcg PO DAILY Xeljanz 5 mg tablet 5 mg PO BID Held losartan 25 mg tablet 25 mg PO DAILY Hold Instructions: Resume on 09/18/25. Please hold and [facility]NA needs to check blood pressure prior to resuming the medication diltiazem HCl 240 mg tablet extended release 24 hr 240 mg PO DAILY Hold Instructions: Resume on 09/18/25. Please follow-up with your PCP and [facility]NA needs to check your blood pressure and heart rate prior to resuming this medication Discharge Orders: Discharge Order (Routine); Ordered 09/16/25 Ordered By: Yesika Boateng Diet: Low salt diet Activity on Discharge: As tolerated Stand Alone Forms: Patient Portal Discharge page Print Language: Samoan Care Plan Goals: Hold losartan and Cardizem as the patient's blood pressure was slightly on the lower side Patient has VNA services being ordered PT cleared the patient and suggested home with VNA which he is getting Please check blood pressure prior to resuming the medications You were noted to have some mild irregularities that you need to follow up with your hearing aid assistant outpatient Please follow up with Neurology outpatient We started you on a medication called atorvastatin and aspirin for stroke workup/this is to reduce cholesterol and decrease the clamping of the platelets to reduce the risk of another stroke next Health Concerns: See above Plan of Treatment: See above Assessment: See above Patient Instructions: Epilepsy (DC)
--- NOTE | 2025-09-16 14:18 | P.F2F_ITS ---
Service Date Service Date: 09/16/25 Encounter Date of encounter: 09/16/25 Reasons for Services Signs and symptoms assessed: Physical therapy needs Reason for halfway: neurological assessment, medication management, medication treatment and teach disease management Reason for physical therapy: home safety and mobility, therapeutic exercises, restore joint function, gait/transfer training, ADL training and energy conservation Homebound: Leaving the home is medically contraindicated at this time without the asist of a device and/or another person due th the listed conditions above and below. Reason homebound: unsteady gait / fall risk, fall risk related to blood pressure changes, leg weakness, pain with ambulation, poor balance / fall risk and weakness related to hospital stay Certification: Based on the above findings, I certify that this patient is confined to the home and needs intermittent halfway care, physical therapy and/or speech therapy, or continues to need occupational therapy. The patient is under my c are, and I have initiated the establishment of the plan of care. The patient will be followed by a physician who will periodically review the plan of care. Time Spent With Patient Time: Total time managing care of this patient today _65___ minutes.
[2025-09-16 15:19] VITALS: BP 104/55; PULSE 80; RESP 16; TEMP 36.1; O2SAT 96
--- NOTE | 2025-09-23 12:10 | P.CDIM_ITS ---
PROVIDER RESPONSE TEXT: To clarify, the appropriate diagnosis supported by the clinical indicators: Underweight QUERY TEXT: PHYSICIAN'S DOCUMENTATION REQUEST Date of Query: 09/16/2025 12:55 PM EST Patient Name: Laurence Alvarado Admit Date: 09/14/2025 Dear Yesika Boateng MD, A review of the medical record indicates additional documentation may be needed. Please review below and update the documentation accordingly. Clinical Indicators: Height: ( ) 5'2 Weight: ( ) 48kg BMI: ( ) 19.4 Other Clinical Notes Supporting Significance of the BMI: on therapeutic diet per RD If possible, please provide an associated diagnosis related to the abnormal BMI, such as: Underweight Weight loss Cachexia Anorexia BMI is not significant Other (explain) Clinically unable to determine (explain) Thank you, Vesta Cruz RN Use of terms such as suspected, likely, concern for, or probable (associated with a specific diagnosis that is being evaluated, monitored, or treated as if it exists) are acceptable and can be coded in the inpatient setting, when documented at the time of discharge. Please use your independent medical judgment in providing your response. THIS QUERY IS PART OF THE PERMANENT MEDICAL RECORD
--- NOTE | 2025-10-07 12:49 | P.CDIM_ITS ---
PROVIDER RESPONSE TEXT: To clarify, the appropriate diagnosis supported by the clinical indicators: TIA has been ruled out and a more appropriate diagnosis for this patient's condition is QUERY TEXT: PHYSICIAN'S DOCUMENTATION REQUEST Date of Query: 10/01/2025 06:49 AM EST Patient Name: Laurence Alvarado Admit Date: 09/14/2025 Dear Yesika Boateng MD, A review of the medical record indicates additional documentation may be needed. Please review below and update the documentation accordingly. The purpose of this query is not to question medical judgment, but to ensure the accuracy of the conditions reported for your patient. The diagnosis of likely TIA is documented in the record on 09/15/25 in the Hospitalist Progress note. There is either a lack of clinical support for this condition in the current medical record, or there is a lack of recognized standard criteria to support the condition. Clinical Indicators: expressive aphasia CT, CTA, MRI unremarkable for acute changes Per Discharge Summary 09/16/25: EEG was done on 09/15/2025 - EEG revealed intermittent disorganized left temporal rhythm. This would suggest underlying tendency for seizure disorder and neurologist's recommendation was to start her on levetiracetam 250 mg twice a day The request is for one of the following: A) Additional documentation to support the condition. Indicate if this is in lieu of what may be considered standard criteria, and/or support why the standard criteria may not be present for this patient. Or B) A more appropriate diagnosis, reflecting the patient's condition. Please clarify the documentation of TIA: TIA remains a known or suspected condition for this patient and is further supported by TIA has been ruled out and a more appropriate diagnosis for this patient's condition is Other (explain) Clinically unable to determine (explain) Thank you, Vesta Cruz RN Use of terms such as suspected, likely, concern for, or probable (associated with a specific diagnosis that is being evaluated, monitored, or treated as if it exists) are acceptable and can be coded in the inpatient setting, when documented at the time of discharge. Please use your independent medical judgment in providing your response. THIS QUERY IS PART OF THE PERMANENT MEDICAL RECORD
== END 2025-09-16 15:57 | disposition home health service (06) | DRG 92 ==
LOC: HO.ED 20:13 → HO.EDOVER 21:50 → HO.IMC 09-14 05:08
PROVIDERS: Admitting Provider Internal Medicine; Emergency Provider Emergency Medicine; PCP Internal Medicine; Visit Provider Student in an Organized Health Care Education/Training Program
DX: R47.01 Aphasia (principal); N39.0 Urinary tract infection, site not specified; Z68.1 Body mass index [BMI] 19.9 or less, adult; E03.9 Hypothyroidism, unspecified; K21.9 Gastro-esophageal reflux disease without esophagitis; K59.09 Other constipation; I10 Essential (primary) hypertension; R94.01 Abnormal electroencephalogram [EEG]; N32.89 Other specified disorders of bladder; M06.9 Rheumatoid arthritis, unspecified; R63.6 Underweight; N31.9 Neuromuscular dysfunction of bladder, unspecified; Z20.822 Contact with and (suspected) exposure to COVID-19; Z87.440 Personal history of urinary (tract) infections; Z79.890 Hormone replacement therapy; Z79.899 Other long term (current) drug therapy
CPT/HCPCS: 36415; 70450; 70496; 70498; 70551; 80048; 80053; 80061; 81001; 83735; 84484; 85025; 87086; 87088; 87186; 87502; 87635; 93005; 93306; 95816; 97161; 97530; 99285; J0696; J1650; Q9957; Q9967

== ENCOUNTER → 2025-09-13 18:54 | Outpatient (BNV) | payer MEDICARE, MEDICAID, SELFPAY | PROVIDERS: Admitting Provider Internal Medicine; Emergency Provider Emergency Medicine; Visit Provider Internal Medicine | DX: R94.31 Abnormal electrocardiogram [ECG] [EKG] (principal); I10 Essential (primary) hypertension | CPT/HCPCS: 93010 ==

== ENCOUNTER → 2025-09-13 19:42 | Outpatient (BNV) | payer MEDICARE, MEDICAID, SELFPAY | PROVIDERS: Emergency Provider Emergency Medicine; Visit Provider Radiology Diagnostic Radiology | DX: G93.40 Encephalopathy, unspecified (principal) | CPT/HCPCS: 70450 ==

== ENCOUNTER 2025-09-13 21:48 | Outpatient (BNV) | payer MEDICARE, MEDICAID, SELFPAY | END 2025-09-14 00:01 | PROVIDERS: Admitting Provider Internal Medicine; Emergency Provider Emergency Medicine; Visit Provider Radiology Diagnostic Radiology | DX: R47.01 Aphasia (principal) | CPT/HCPCS: 70496; 70498; 70551 ==

== ENCOUNTER 2025-09-13 21:48 | Outpatient (BNV) | payer MEDICARE, MEDICAID, SELFPAY | END 2025-09-14 15:00 | PROVIDERS: Admitting Provider Internal Medicine; Emergency Provider Emergency Medicine; PCP Internal Medicine; Visit Provider Psychiatry & Neurology Neurology | DX: R94.01 Abnormal electroencephalogram [EEG] (principal); R56.9 Unspecified convulsions | CPT/HCPCS: 95816 ==

== ENCOUNTER 2025-09-13 21:48 | Outpatient (BNV) | payer MEDICARE, MEDICAID, SELFPAY | END 2025-09-15 07:00 | PROVIDERS: Admitting Provider Internal Medicine; Emergency Provider Emergency Medicine; Visit Provider Internal Medicine | DX: I34.81 Nonrheumatic mitral (valve) annulus calcification (principal); I51.89 Other ill-defined heart diseases | CPT/HCPCS: 93306 ==

== ENCOUNTER → 2025-09-13 21:48 | Outpatient (BNV) | payer MEDICARE, MEDICAID, SELFPAY | PROVIDERS: Admitting Provider Internal Medicine; Emergency Provider Emergency Medicine; Visit Provider Psychiatry & Neurology Neurology | DX: R47.01 Aphasia (principal) | CPT/HCPCS: 99222 ==

== ENCOUNTER → 2025-09-13 21:48 | Outpatient (BNV) | payer MEDICARE, MEDICAID, SELFPAY | PROVIDERS: Admitting Provider Internal Medicine; Emergency Provider Emergency Medicine; Visit Provider Internal Medicine | DX: R47.01 Aphasia (principal); I10 Essential (primary) hypertension; N39.0 Urinary tract infection, site not specified | CPT/HCPCS: 99222; 99232; 99233; 99239; G0180 ==